=== PATIENT | female | born 1945 | race Caucasian/White ===

== ENCOUNTER 2021-02-05 16:41 | Emergency (ER) | payer OTHER, MEDICARE ==
[~2021-02-05] VITALS: Ht 162.6 cm; Wt 99.8 kg
[2021-02-05] MEDS ORDERED: FLUTICASONE PRO16 GM (19:12)
[2021-02-05] MEDS ORDERED: ALPRAZOLAM1 M3 PO (19:12)
[2021-02-05] MEDS ORDERED: NITROGLYCERIN0.4 M3 SL (19:12)
[2021-02-05] MEDS ORDERED: NEURONTIN300 MG PO (19:12)
[2021-02-05] MEDS ORDERED: ZOLOFT25 MG PO (19:13)
[2021-02-05] MEDS ORDERED: TRAZ50 PO (19:13)
[2021-02-05] MEDS ORDERED: Ventolin/Prove6.7 GM INH (19:13)
[2021-02-05] MEDS ORDERED: OXYCODONE-ACET1 EAC2 (19:13)
[2021-02-05] MEDS ORDERED: OMEP20ER PO (19:14)
== END 2021-02-05 20:58 | disposition home or self-care (01) ==
LOC: ER 16:41
DX: S80.02XA Contusion of left knee, initial encounter (principal); M25.512 Pain in left shoulder; J43.9 Emphysema, unspecified; Z87.891 Personal history of nicotine dependence; Z88.1 Allergy status to other antibiotic agents; W01.0XXA Fall on same level from slipping, tripping and stumbling without subsequent striking against object, initial encounter
CPT/HCPCS: 71101; 73030; 73562-LT; 99283-25

== ENCOUNTER → 2022-04-04 | Outpatient (CLI) | payer MEDICARE, OTHER ==
[~2022-04-04] MED LIST: ALPRAZOLAM1 M3 PO; FLUTICASONE PRO16 GM; NEURONTIN300 MG PO; NITROGLYCERIN0.4 M3 SL; OMEP20ER PO; OXYCODONE-ACET1 EAC2; TRAZ50 PO; Ventolin/Prove6.7 GM INH; ZOLOFT25 MG PO
[2022-04-04 16:04] LABS: Alanine Aminotransfer (ALT/SGP 18 U/L (12-78); Albumin, Blood 3.6 g/dL (3.4-5.0); Albumin/Globulin Ratio 1.3 (0.8-1.8); Alk Phos 51 U/L (50-136); Anion Gap 4 mmol/L (6-16); Aspartate Aminotrans (AST/SGOT 16 U/L (12-37); BASOPHILS ABSOLUTE AUTO 0.02 K/mm3 (0.00-0.23); BASOPHILS PERCENT AUTO 0 % (0-2); Bilirubin, Total 0.5 mg/dL (0.1-1.0); Blood Urea Nitrogen 20 mg/dL (8-24); Bun/Creatinine Ratio 32.6 (12.0-20.0); CHOL/HDL RATIO 2.9; CO2, Blood 33 mmol/L (21-32); Calcium, Blood 8.9 mg/dL (8.5-10.1); Chloride, Blood 103 mmol/L (98-108); Cholesterol 205 mg/dL (50-200); Creatinine, Blood 0.61 mg/dL (0.40-1.00); EOSINOPHILS ABSOLUTE AUTO 0.04 K/mm3 (0.00-0.68); EOSINOPHILS PERCENT AUTO 1 % (0-6); Globulin, Blood 2.8 g/dL (2.2-4.0); Glomerular Filtration Rate 94 (60-); Glucose, Blood 122 mg/dL (70-99); HDL Cholesterol 70 mg/dL (>39); Hemoglobin 13.2 g/dL (11.5-16.0); IMMATURE GRAN ABSOLUTE AUTO 0.01 K/mm3 (0.00-0.10); IMMATURE GRAN PERCENT AUTO 0 % (0-1); LDL/HDL RATIO 1.7; LYMPHOCYTES ABSOLUTE AUTO 0.98 K/mm3 (0.84-5.20); LYMPHOCYTES PERCENT AUTO 19 % (21-46); Low Density Lipoprotein Chol 117 mg/dL (0-110); MONOCYTES ABSOLUTE AUTO 0.28 K/mm3 (0.16-1.47); MONOCYTES PERCENT AUTO 5 % (4-13); Mean Corpuscular HGB 28.8 pg (26.0-34.0); Mean Corpuscular HGB Conc 30.7 g/dL (31.5-36.5); Mean Corpuscular Volume 94 fL (80-100); Mean Platelet Volume 10.6 fL (9.1-12.4); NEUTROPHILS ABSOLUTE AUTO 3.87 K/mm3 (1.96-9.15); NEUTROPHILS PERCENT AUTO 74 % (41-73); Platelet Count 171 K/mm3 (150-400); Potassium, Blood 4.8 mmol/L (3.5-5.5); RDW Coefficient Variation 12.8 % (11.7-14.2); RDW Standard Deviation 43.9 fL (35.1-46.3); Red Blood Cell Count 4.58 M/mm3 (3.80-5.20); Sodium, Blood 140 mmol/L (136-145); Total Protein, Blood 6.4 g/dL (6.4-8.2); Triglycerides 91 mg/dL (30-160); Very Low Density Lipoprot Chol 18 mg/dL (6-32)
== END | disposition home or self-care (01) ==
LOC: LAB SHORT 12:10
PROVIDERS: Nurse Practitioner
DX: E78.5 Hyperlipidemia, unspecified (principal)
CPT/HCPCS: 80053; 80061; 85025

== ENCOUNTER 2024-08-06 18:30 | Emergency (ER) | payer MEDICARE, OTHER ==
[~2024-08-06] VITALS: Ht 162.6 cm; Wt 103.0 kg
[2024-08-06] MEDS ORDERED: FentaNYL Citrate 50 MCG/ML 2 ML Injection IV PRN (23:55)
[2024-08-07 01:32] LABS: BASOPHILS ABSOLUTE AUTO 0.03 K/mm3 (0.00-0.23); BASOPHILS PERCENT AUTO 0 % (0-2); EOSINOPHILS ABSOLUTE AUTO 0.07 K/mm3 (0.00-0.68); EOSINOPHILS PERCENT AUTO 1 % (0-6); Hematocrit 38.6 % (33.0-51.0); Hemoglobin 12.2 g/dL (11.5-16.0); IMMATURE GRAN ABSOLUTE AUTO 0.04 K/mm3 (0.00-0.10); IMMATURE GRAN PERCENT AUTO 1 % (0-1); LYMPHOCYTES ABSOLUTE AUTO 1.55 K/mm3 (0.84-5.20); LYMPHOCYTES PERCENT AUTO 21 % (21-46); MONOCYTES ABSOLUTE AUTO 0.77 K/mm3 (0.16-1.47); MONOCYTES PERCENT AUTO 10 % (4-13); Mean Corpuscular HGB 28.4 pg (26.0-34.0); Mean Corpuscular HGB Conc 31.6 g/dL (31.5-36.5); Mean Corpuscular Volume 90 fL (80-100); Mean Platelet Volume 10.1 fL (9.1-12.4); NEUTROPHILS ABSOLUTE AUTO 4.98 K/mm3 (1.96-9.15); NEUTROPHILS PERCENT AUTO 67 % (41-73); Platelet Count 175 K/mm3 (150-400); RDW Coefficient Variation 14.1 % (11.7-14.2); RDW Standard Deviation 46.8 fL (35.1-46.3); Red Blood Cell Count 4.29 M/mm3 (3.80-5.20); White Blood Cell Count 7.44 K/mm3 (4.00-11.30)
[2024-08-07 02:04] LABS: Source, Urine Straight Cath
[2024-08-07 02:13] LABS: Albumin, Blood 2.6 g/dL (3.4-5.0); Albumin/Globulin Ratio 0.7 (0.8-1.8); Bilirubin, Total 1.5 mg/dL (0.1-1.0); Bun/Creatinine Ratio 21.3 (12.0-20.0); Calcium, Blood 8.4 mg/dL (8.5-10.1); Creatinine, Blood 0.52 mg/dL (0.40-1.00); Globulin, Blood 3.5 g/dL (2.2-4.0); Potassium, Blood 3.3 mmol/L (3.5-5.5); Total Protein, Blood 6.1 g/dL (6.4-8.2)
[2024-08-07 02:22] LABS: Bilirubin, Urine Neg (Neg); Blood, Urine 2+ (Neg); Glucose Qualitative, Urine Neg (Neg); Ketones, Urine Neg (Neg); Leukocyte Esterase, Urine Neg (Neg); Nitrite, Urine Neg (Neg); Protein, Urine Neg (Neg); Urobilinogen, Urine NORM (Normal)
[2024-08-07 02:29] LABS: Appearance, Urine Hazy (Clear); Color, Urine Pale Yellow (P-Yellow)
[2024-08-07 02:30] LABS: Bacteria Few /hpf; Mucus Light (0-Heavy); Red Blood Cells, Urine 0-2 /hpf (0-2); Squamous Epithelial Cells Few /hpf (Few); White Blood Cells, Urine 0-2 /hpf (0-5)
[2024-08-07] MEDS ORDERED: Ketorolac Tromethamine 30mg Vial IV ONE (03:05)
[2024-08-07] MEDS ORDERED: HYDROcodone 10-APAP 325 TAB PO ONE (06:10)
[2024-08-07] MEDS ORDERED: Gabapentin 300 MG Cap PO ONE ×2 (06:10→08:10)
[2024-08-07 11:50] VITALS: BP 98/53
== END 2024-08-07 12:36 | disposition home or self-care (01) ==
LOC: ER 18:30
PROVIDERS: Emergency Medicine
DX: S32.019A Unspecified fracture of first lumbar vertebra, initial encounter for closed fracture (principal); S22.089A Unspecified fracture of T11-T12 vertebra, initial encounter for closed fracture; J44.89 Other specified chronic obstructive pulmonary disease; W18.30XA Fall on same level, unspecified, initial encounter; Z87.891 Personal history of nicotine dependence; Z79.51 Long term (current) use of inhaled steroids; Z79.899 Other long term (current) drug therapy; Z88.1 Allergy status to other antibiotic agents
CPT/HCPCS: 51702; 70450; 71045; 71260; 73502; 73560-LT; 73560-RT; 74177; 80053; 81001; 85025; 93005; 93010; 96374-59; 99285-25; A9270; J1885; Q9967

== ENCOUNTER 2024-12-07 11:17 | Inpatient (IN) | payer MEDICARE, OTHER ==
[~2024-12-07] VITALS: Ht 165.1 cm; Wt 84.0 kg
[~2024-12-07 11:17] MED LIST changes: +TRAZ100 PO; -TRAZ50 PO
[2024-12-07] MEDS ORDERED: levalbuterol HCL 1.25 MG/3 ML VIAL INH PRN (11:45)
[2024-12-07] MEDS ORDERED: MethylPREDNISolone Sod Succ 125 MG Vial IV ONE (11:45)
[2024-12-07 11:49] LABS: BASOPHILS ABSOLUTE AUTO 0.01 K/mm3 (0.00-0.23); BASOPHILS PERCENT AUTO 0 % (0-2); EOSINOPHILS PERCENT AUTO 0 % (0-6); Hematocrit 41.7 % (33.0-51.0); Hemoglobin 12.9 g/dL (11.5-16.0); IMMATURE GRAN ABSOLUTE AUTO 0.02 K/mm3 (0.00-0.10); IMMATURE GRAN PERCENT AUTO 0 % (0-1); LYMPHOCYTES ABSOLUTE AUTO 0.74 K/mm3 (0.84-5.20); LYMPHOCYTES PERCENT AUTO 9 % (21-46); MONOCYTES ABSOLUTE AUTO 0.13 K/mm3 (0.16-1.47); MONOCYTES PERCENT AUTO 2 % (4-13); Mean Corpuscular HGB 27.6 pg (26.0-34.0); Mean Corpuscular HGB Conc 30.9 g/dL (31.5-36.5); Mean Corpuscular Volume 89 fL (80-100); NEUTROPHILS ABSOLUTE AUTO 7.31 K/mm3 (1.96-9.15); NEUTROPHILS PERCENT AUTO 89 % (41-73); Platelet Count 256 K/mm3 (150-400); RDW Coefficient Variation 15.5 % (11.7-14.2); RDW Standard Deviation 50.8 fL (35.1-46.3); Red Blood Cell Count 4.67 M/mm3 (3.80-5.20); White Blood Cell Count 8.21 K/mm3 (4.00-11.30)
[2024-12-07 12:06] LABS: Albumin, Blood 3.2 g/dL (3.4-5.0); Bilirubin, Total 0.9 mg/dL (0.1-1.0); Bun/Creatinine Ratio 16.1 (12.0-20.0); Calcium, Blood 8.9 mg/dL (8.5-10.1); Creatinine, Blood 0.56 mg/dL (0.40-1.00); Globulin, Blood 3.3 g/dL (2.2-4.0); Potassium, Blood 3.6 mmol/L (3.5-5.5); Total Protein, Blood 6.5 g/dL (6.4-8.2)
[2024-12-07] MEDS ORDERED: Ipratropium Bromide INH 0.02% 0.5 mg/2.5ML Vial INH ONE (12:10)
[2024-12-07 13:05] LABS: Influenza A, PCR NEGATIVE (NEGATIVE); Influenza B, PCR NEGATIVE (NEGATIVE); Resp Syncytial Virus, PCR NEGATIVE (NEGATIVE); SARS-Cov-2 (COVID-19) PCR, MMC NEGATIVE (NEGATIVE)
[2024-12-07] MEDS ORDERED: Bisacodyl 10 MG Supp PR PRN (15:10)
[2024-12-07] MEDS ORDERED: FLU VACC TS2024-25(6MOS UP)/PF 45 MCG/0.5 ML SYRINGE IM SCH (15:10)
[2024-12-07] MEDS ORDERED: Albuterol 2.5 MG/3 ML VIAL INH PRN (15:15)
[2024-12-07] MEDS ORDERED: Magnesium Hydroxide Conc 10 ML UDC PO PRN (15:15)
[2024-12-07] MEDS ORDERED: Acetaminophen 325 MG TABLET PO PRN (15:15)
[2024-12-07] MEDS ORDERED: [UNRECOGNIZED DRUG - OTHER] IM ONE (15:15)
[2024-12-07 15:56] LABS: Base Excess Venous 0.6 mmol/L; Bicarbonate Venous 25.3 mmol/L (24.0-30.0); PCO2 Venous 35.9 mmHg (38-42); pH Blood Venous 7.45 (7.34-7.37)
[2024-12-07] MEDS ORDERED: Ipratropium/Albuterol SulF 2.5-0.5MG/3 ML Amp INH SCH (16:00)
[2024-12-07] MEDS ORDERED: Apixaban 5 MG Tab PO SCH (16:00)
[2024-12-07] MEDS ORDERED: BUSPIRONE HCL10 M6 PO (16:35)
[2024-12-07] MEDS ORDERED: METH5 PO (16:36)
[2024-12-07] MEDS ORDERED: TRAZ100 (16:38)
[2024-12-07] MEDS ORDERED: OXYBUTYNIN CHL2.5 MG PO (16:38)
[2024-12-07] MEDS ORDERED: TORSE20 PO (16:38)
[2024-12-07] MEDS ORDERED: NEURONTIN300 MG PO (16:38)
[2024-12-07] MEDS ORDERED: TRELEGY ELLIPT1 EAC1 INH (16:39)
[2024-12-07] MEDS ORDERED: Gabapentin 300 MG Cap PO SCH (17:00)
[2024-12-07] MEDS ORDERED: OMEP20ER PO (17:00)
[2024-12-07] MEDS ORDERED: Zolpidem Tartrate 5 MG Tab PO PRN (17:05)
[2024-12-07 17:10] VITALS: BP 160/100
[2024-12-07] MEDS ORDERED: Ipratropium Bromide INH 0.02% 0.5 mg/2.5ML Vial INH SCH (17:10)
[2024-12-07] MEDS ORDERED: Mometasone/Formoterol MDI 200/5 mcg 13 GM INH SCH (17:10)
[2024-12-07] MEDS ORDERED: Torsemide 20 MG TAB PO SCH (18:00)
[2024-12-07] MEDS ORDERED: MethylPREDNISolone Sod Succ 125 MG Vial IV SCH (18:00)
[2024-12-07] MEDS ORDERED: Methadone HCL 10 MG TAB PO SCH (21:00)
[2024-12-07] MEDS ORDERED: BusPIRone HCl 10 MG Tab PO SCH (21:00)
[2024-12-07] MEDS ORDERED: TraZODone HCl 100 MG Tab PO SCH (21:00)
[2024-12-07 21:12] VITALS: BP 141/95
[2024-12-07 23:57] VITALS: BP 146/90
[2024-12-08 04:12] LABS: BASOPHILS PERCENT AUTO 0 % (0-2); EOSINOPHILS PERCENT AUTO 0 % (0-6); Hematocrit 41.2 % (33.0-51.0); Hemoglobin 12.9 g/dL (11.5-16.0); IMMATURE GRAN ABSOLUTE AUTO 0.02 K/mm3 (0.00-0.10); IMMATURE GRAN PERCENT AUTO 0 % (0-1); LYMPHOCYTES ABSOLUTE AUTO 0.77 K/mm3 (0.84-5.20); LYMPHOCYTES PERCENT AUTO 15 % (21-46); MONOCYTES ABSOLUTE AUTO 0.13 K/mm3 (0.16-1.47); MONOCYTES PERCENT AUTO 3 % (4-13); Mean Corpuscular HGB 27.6 pg (26.0-34.0); Mean Corpuscular HGB Conc 31.3 g/dL (31.5-36.5); Mean Corpuscular Volume 88 fL (80-100); Mean Platelet Volume 10.3 fL (9.1-12.4); NEUTROPHILS ABSOLUTE AUTO 4.24 K/mm3 (1.96-9.15); NEUTROPHILS PERCENT AUTO 82 % (41-73); Platelet Count 237 K/mm3 (150-400); RDW Coefficient Variation 15.6 % (11.7-14.2); RDW Standard Deviation 50.1 fL (35.1-46.3); Red Blood Cell Count 4.67 M/mm3 (3.80-5.20); White Blood Cell Count 5.16 K/mm3 (4.00-11.30)
[2024-12-08 04:14] VITALS: BP 148/81
--- NOTE | 2024-12-08 04:30 | NUR ---
SHIFT SUMMARY. SHIFT HAS BEEN UNREMARKABLE. PT AOX4 AT SHIFT ONSET ALTHOUGH MENTATION HAS SOMEWHAT FLUCTUATED THROUGHOUT SHIFT. REMAINS ABLE TO ANSWER MOST ORIENTATION QUESTIONS APPROPRIATELY BUT AT TIMES MAKES NONSENSICAL COMMENTS AND ANSWERS QUESTIONS THAT WERE NOT ASKED. OTHERWISE SHIFT HAS BEEN UNREMARKABLE. PT ABLE TO REST COMFORTABLY. PUREWICK IN PLACE THROUGHOUT SHIFT D/T INCONTINENCE. VITALS STABLE. HAS MAINTAINED ADEQUATE SATURATION ON 3 L O2 VIA NC THROUGHOUT SHIFT. HAS DENIED PAIN THROUGHOUT SHIFT OUTSIDE OF THAT ASSOCIATED WITH REPOSITIONING AND SOME OTHER ASPECTS OF CARE. PT REPORTS HX OF FIBROMYALGIA THAT CAUSES THINGS LIKE BLOOD PRESSURE TO BE PAINFUL BUT OTHERWISE PT IS PAIN FREE WHEN LEFT ALONE. BED LOCKED IN LOWEST POSITION. CALL LIGHT LEFT WITHIN REACH. CONTINUING TO MONITOR.
[2024-12-08 04:41] LABS: Bun/Creatinine Ratio 15.7 (12.0-20.0); Calcium, Blood 8.8 mg/dL (8.5-10.1); Creatinine, Blood 0.57 mg/dL (0.40-1.00); Potassium, Blood 3.1 mmol/L (3.5-5.5)
[2024-12-08] MEDS ORDERED: Omeprazole 20 MG CapCR PO SCH (06:00)
[2024-12-08 08:00] VITALS: BP 130/113
[2024-12-08] MEDS ORDERED: Potassium Chloride 20 MEQ TabCR PO ONE (08:00)
[2024-12-08] MEDS ORDERED: Heparin Sodium 5000 Units/ML 1ML MDV SC SCH (09:00)
[2024-12-08] MEDS ORDERED: HyDROXyzine HCl 25 MG Tab PO PRN (09:50)
[2024-12-08 12:00] VITALS: BP 124/108
--- NOTE | 2024-12-08 14:36 | NUR ---
REPORT RECIEVED AT 0700. BEDSIDE REPORT DONE, ALL QUESTIONS ANSWERED. DURING MED PASS, RN CALLED TO BEDSIDE FOR PATIENT HAVING A PANIC ATTACK. RR HIGH 30'S, HR 140'S, PT FLUSHED IN THE FACE. DEESCULATION COMMUNICATIONS NOT EFFECTIVE. PATIENT A/O TO SELF ONLY. DR. GAINES AND RANDY AT BEDSIDE. EPISODE LASTED AROUND 30 MINS. MORNING MEDS GIVEN INCLUDING METHADONE 20MG. PATIENT REPORTS FEELING BETTER FOLLOWING MORNING MEDS. ATARAX PRN ORDERED AND GIVEN. THROUGHOUT SHIFT DISTRACTIONS SUCH BOOKS, PEN/PAPER, TV, COMFORT OFFERED. PATIENT REMAINS A/O X1-2. ANXIETY, REMAINS A PROBLEM BUT PATIENT NOT A HARM TO HERSELF AT THIS TIME.
[2024-12-08 16:00] VITALS: BP 146/112
[2024-12-08 20:04] VITALS: BP 145/87
[2024-12-08 21:53] VITALS: BP 148/83
--- NOTE | 2024-12-08 22:08 | NUR ---
RECEIVED PT FROM PCU. PT ORIENTED TO SELF AND "[facility]". PT SPEAKS WITH FLIGHTS OF IDEAS. PT ANXIOUS AND JUMPY/ STRTLES EASILY WITH CARE. PT REFUSING TO LAY ON SIDE, BUT DID AGREE TO PILLOWS UNDER BOTH SIDES TO FLOAT HER BUTTOCKS OFF BED. COCCYX RED BUT BLANCHABLE. 3L NC IN PLACE, WHICH IS PT'S BASELINE. PUREWICK FOR INCONTINENCE. SILVER CLOTH IN PANNUS FOLD AND LEFT AXILA. PT ORIENTED TO UNIT AND DENIES QUESTIONS AT THIS TIME.
--- NOTE | 2024-12-09 00:59 | NUR ---
TRANSFER PT IS A&O TO SELF AND PLACE. VSS ON 3L NC. DENIES PAIN. TOLERATING A REGULAR DIET. TAKES PILLS MULTIPLE AT A TIME WITH FLUID. WICKING SYSTEM IN PLACE, DRAINING ADEQUATE AMOUNTS OF YELLOW URINE. NOOB. CALLED LIBRADO Sunshine RN TO GIVE REPORT. TRANSFERED PT IN HER BED WITH ALL HER BELONGINGS WITH HER TO ROOM 330 AT 2125.
[2024-12-09 03:24] VITALS: BP 175/90
--- NOTE | 2024-12-09 05:16 | NUR ---
SHIFT SUMMARY PT TRANSFERED FROM PCU- SEE PRIOR NOTE. PT SLEPT INTERMITTENTLY DURING THE NIGHT. PUREWICK MAINTAINED FOR HX INCONT. PT UP TO BSC X 1 WITH ASSIST. PT IMPULSIVE AT TIMES. MEDICATED FOR ANXIETY WITH ATARAX PER EMAR. PT FIDGETY, FORGETFUL AT TIMES, AND SPEAKS WITH FLIGHT OF IDEAS. BED IN LOWEST POSITION, CALL LIGHT WITHIN REACH, SIDERAILS UP X2, BED ALARM ON.
[2024-12-09 06:31] LABS: BASOPHILS PERCENT AUTO 0 % (0-2); EOSINOPHILS PERCENT AUTO 0 % (0-6); Hemoglobin 12.3 g/dL (11.5-16.0); IMMATURE GRAN ABSOLUTE AUTO 0.05 K/mm3 (0.00-0.10); IMMATURE GRAN PERCENT AUTO 1 % (0-1); LYMPHOCYTES ABSOLUTE AUTO 0.91 K/mm3 (0.84-5.20); LYMPHOCYTES PERCENT AUTO 10 % (21-46); MONOCYTES ABSOLUTE AUTO 0.28 K/mm3 (0.16-1.47); MONOCYTES PERCENT AUTO 3 % (4-13); Mean Corpuscular HGB 27.5 pg (26.0-34.0); Mean Corpuscular HGB Conc 30.8 g/dL (31.5-36.5); Mean Corpuscular Volume 90 fL (80-100); Mean Platelet Volume 10.1 fL (9.1-12.4); NEUTROPHILS ABSOLUTE AUTO 7.72 K/mm3 (1.96-9.15); NEUTROPHILS PERCENT AUTO 86 % (41-73); Platelet Count 205 K/mm3 (150-400); RDW Coefficient Variation 15.6 % (11.7-14.2); RDW Standard Deviation 51.2 fL (35.1-46.3); Red Blood Cell Count 4.47 M/mm3 (3.80-5.20); White Blood Cell Count 8.96 K/mm3 (4.00-11.30)
[2024-12-09 07:07] LABS: Calcium, Blood 8.8 mg/dL (8.5-10.1); Creatinine, Blood 0.67 mg/dL (0.40-1.00); Potassium, Blood 3.5 mmol/L (3.5-5.5)
[2024-12-09 08:09] VITALS: BP 144/71
--- NOTE | 2024-12-09 16:19 | NUR ---
Met with pt today, she was oriented to self only, and speaking in disorganized manor. Unable to stay on track with conversation. For instance, she answered a question about her son but ended up confusing her dog and her son by the end of the statement. Very concerned at the prospect of her returning home, especially into the supposed care of a teenage grandson, per CM. Discussing with PIPING BLOCKER more tomorrow.
--- NOTE | 2024-12-09 16:30 | NUR ---
PT PULLED BOTH IV'S, NOW CHANTING PHRASES. WAS ABLE TO GET ATARAX DOWN, WITH PUDDING. THEN PT ACCEPTED A SIP OF WATER, AND THREW FULL GLASS AT ME. MISSED AND HIT WALL. PT CONTINUES TO CHANT. NONSENSICAL. BED IN LOW POSITION, CALL LITE IN REACH, BED ALARM ON FOR SAFETY
[2024-12-09] MEDS ORDERED: OLANZapine ODT 5 MG Tab MM PRN (16:45)
--- NOTE | 2024-12-09 16:57 | NUR ---
DISCUSSED WITH DR PADILLA IN [place]. ORDERS FOR ZYPREXA
[2024-12-09 17:40] VITALS: BP 166/109
--- NOTE | 2024-12-09 18:31 | NUR ---
PT LABILE TODAY. ATTEMPTED TO HIT ME TWICE TODAY. HAS BEEN CHANTING STATEMENTS TODAY, MOST OF TIME NONSENSICAL. DISCUSSED WITH DR. GRANT STARTED TODAY. ABLE TO TAKE PILLS EVEN WHILE HIGH ANXIETY, WITH PATIENCE AND CRUSHED IN VANILLA PUDDING. B/P SOME HIGH THIS AFTERNOON, BUT WAS STILL PRETTY ANXIOUS WHEN TOOK. BEFORE GIVEN THE ZYPREXA. NO FURTHER CONCERNS NOTED. BED IN LOW POSITION, CALL LITE IN REACH, BED ALARM ON FOR SAFETY
[2024-12-09 21:14] VITALS: BP 146/88
--- NOTE | 2024-12-10 00:22 | NUR ---
UNABLE TO ADMINISTER SCHEDULED IV SOLUMEDROL D/T PT HAS NO IV ACCESS. WILL NOTIFY STEEPLE JACK, AND PASS INFO TO DAYSHIFT RN.
[2024-12-10 03:04] VITALS: BP 131/67
--- NOTE | 2024-12-10 03:53 | NUR ---
SHIFT SUMMARY NO ACUTE EVENTS DURING THIS SHIFT. PT LAYING IN BED WITH PUREWICK IN PLACE. PT A/O X2. COOPERATIVE WITH CARE. HS SCHEDULED MEDICATIONS CRUSHED AND ADMINISTERED WITH VANILLA PUDDING PER PT REQUEST. NO IV ACCESS- MIDNIGHT SOLUMEDROL HELD. O2 3L VIA NASAL CANNULA, PT DENIES SOB. O2 SAT'S>97%. BED AT THE LOWEST POSITION, CALL LIGHT WITHIN REACH. PT IS ABLE TO MAKE HER NEEDS KNOWN.
[2024-12-10 06:09] LABS: Hematocrit 40.7 % (33.0-51.0); Hemoglobin 12.7 g/dL (11.5-16.0); Mean Corpuscular HGB 27.8 pg (26.0-34.0); Mean Corpuscular HGB Conc 31.2 g/dL (31.5-36.5); Mean Corpuscular Volume 89 fL (80-100); Mean Platelet Volume 9.6 fL (9.1-12.4); Platelet Count 170 K/mm3 (150-400); RDW Coefficient Variation 15.5 % (11.7-14.2); RDW Standard Deviation 50.4 fL (35.1-46.3); Red Blood Cell Count 4.57 M/mm3 (3.80-5.20); White Blood Cell Count 6.97 K/mm3 (4.00-11.30)
[2024-12-10 06:31] LABS: Bun/Creatinine Ratio 25.9 (12.0-20.0); Calcium, Blood 8.6 mg/dL (8.5-10.1); Creatinine, Blood 0.66 mg/dL (0.40-1.00); Potassium, Blood 3.1 mmol/L (3.5-5.5)
[2024-12-10] MEDS ORDERED: Potassium Chloride 20 MEQ TabCR PO ONE ×2 (07:10→08:00)
[2024-12-10 07:19] VITALS: BP 129/68
[2024-12-10] MEDS ORDERED: PredniSONE 20 MG Tab PO SCH (09:00)
--- NOTE | 2024-12-10 13:24 | NUR ---
ASSUMED CARE OF PT. PT LAYING IN BED QUIETLY WHEN I APPROACHED PT AND REQUESTED PREFORMING ASSSSMENT PT STATED NO AND THAT SHE DIDNT WANT TO BE BOTHERED NOR DID SHE WANT ANY MEDICATIONS. PT THEN STATED SHE HATES MY VOICE AND DOESNT WANT ME COMING BACK. I LET HER KNOW I WOULD RETURN TO CHECK UP ON HER. 08 PT REFUSED BREAKFAST, PT LAYING AND REFUSING TO OPEN EYES, AGAIN SHE STATED SHE DIDNT WANT TO TALK TO ME AND I WOULD NOT TURN NOR CHECK HER. RESIDENT STAFF WAS INFORMED AND WAS ALSO USHERED OUT OF ROOM. CARE MANAGEMENT WAS ALSO INFORMED AND ALSO FOUND PT TO BE DIFFICULT TO WORK WITH.
--- NOTE | 2024-12-10 13:32 | NUR ---
ASSESSED PT Q 1 HOUR AND ASKED IF SHE NEEDED ANYTHING, PT GROWING MORE AND MORE FRUSTRATED WITH ME SO I WILL GIVE MORE SPACE BETWEEN CHCKING IN. CLIENT SERVICE ASSOCIATE HAVING MORE LUCK COMMUNICATING WITH PT, BUT STILL REFUSING CARE.
--- NOTE | 2024-12-10 17:33 | NUR ---
1500 LET PT KNOW THAT WE WOULD NEED TO CHANGE HER, SHE RESPONDEDBY SAYING NO NO THANK YOU. THEN THE PIE DOUGH ROLLER AND I ENTERED THE ROOM AND LET PT KNOW WE WERE GOING TO CHANGE HER AND HER POSITION IN BED, PT DID NOT SAY ANYTHING AND KEPT EYES CLOSED. THE PIE DOUGH ROLLER AND I CHANGED PT SUCCESSFULLY. PT SKIN INTACT PURWIC TO LCS.
[2024-12-10 17:50] VITALS: BP 158/96
--- NOTE | 2024-12-10 18:09 | NUR ---
1700 CHECKED ON PT BUT PT WAS VERY LETHARGIC AND DIFFICULT TO AROUSE, WOULD NOT RESPOND TO VERBLE RESPONSE BUT DID RESPOND TO DEEP STERNAL RUB. EYE RESPONSIVE TO LIGHT AND VITALS WERE WNL. DR MENON WAS NOTIFIED.
--- NOTE | 2024-12-10 20:32 | NUR ---
@HS PT REFUSED ALL HER SCHEDULED PO MEDICATIONS. PT ALSO REFUSED SHIFT ASSESSMENT. PT REFUSES TO WEAR NASAL CANNULA, O2 SUPPORT. RRN CHARGE NOTIFIED.
[2024-12-10 20:49] VITALS: BP 154/81
[2024-12-11] VITALS (8 sets, daily range): BP systolic 72–160; BP diastolic 55–106
--- NOTE | 2024-12-11 03:53 | NUR ---
SHIFT SUMMARY @HS PT REFUSED SCHEDULED MEDICATIONS, SHIFT ASSESSMENT AND O2 VIA NASAL CANNULA 3.5L. PT REFUSED TO SPEAK TO THIS LACE PAPER MACHINE OPERATOR, KEEPING HER EYES CLOSED. AROUND MIDNIGHT, NOTED THAT PT PLACED NASAL CANNULA BACK ON HER NOSTRILS. PT SPEAKING WITH THIS LACE PAPER MACHINE OPERATOR, DENIED NEEDS. MFTS ABLE TO GET VS'S AND ABLE TO REPOSITION THE PT IN BED. PUREWICK IN PLACE, DRAINING CLOUDY YELLOW URINE. ATTENDS IN PLACE. NO ACUTE EVENTS DURING THIS SHIFT. BED AT THE LOWEST POSITION, CALL LIGHT W/I REACH. PT IS ABLE TO MAKE HER NEEDS KNOWN, AND NOT COOPERATIVE WITH CARE.
[2024-12-11] MEDS ORDERED: Potassium Chloride 10 Meq Tablet SA PO SCH (10:30)
[2024-12-11 15:56] LABS: Albumin, Blood 3.2 g/dL (3.4-5.0); Albumin/Globulin Ratio 0.9 (0.8-1.8); Bun/Creatinine Ratio 34.7 (12.0-20.0); Calcium, Blood 10.1 mg/dL (8.5-10.1); Creatinine, Blood 0.69 mg/dL (0.40-1.00); Globulin, Blood 3.7 g/dL (2.2-4.0); Total Protein, Blood 6.9 g/dL (6.4-8.2)
[2024-12-11] MEDS ORDERED: Metoprolol Succinate 25 MG TABCR PO SCH (16:00)
[2024-12-11] MEDS ORDERED: Ipratropium/Albuterol SulF 2.5-0.5MG/3 ML Amp INH SCH (17:20)
--- NOTE | 2024-12-11 18:27 | NUR ---
REPORT RECEIVED AND ASSUMED CARE OF PT A/O X 2 REORIENTED AND VERY FORGETFUL BUT IS MUCH MORE WILL TO BE COOPERATIVE WITH CARE TODAY. PT DID VERY WELL DURING THE MORNING AND WAS EVEN ABLE TO TRANSFER TO A BSC HAVING A LARGE BM. PT WAS ABLE TO CALL APPROPRIATLY AND HAS BEEN USING CALL LIGHT ALL MORNING. SHORTLY BEFORE LUNCH PT BEGAN WORKING HARDER AND HARDER TO BREATH, THOUGH PT STATED SHE FELT GREAT, HER HEART RATE AND BREATHING INCREASED. PT WAS MEDICATED FOR AGITATION AND WAS THANKFUL. WAS NOTIFIED AND LATER ARRIVED TO DO AN ECG. PT CONT TO LAY IN BED CONTENT. 1700 MDs, INTO SEE PT NEW ORDERS IMPLEMENTED. RT WAS NOTIFIED
--- NOTE | 2024-12-11 23:17 | NUR ---
12/11/242009 This engineering technical writer is charge nurse, asked by pt nurse to assess pt. Pt is obtunded where she had been more alert just a few minutes before. Vital signs taken,BP 83/63 pt grunts but minimal response to assessment. 2015 Respiratory therapist in room, breathing treatment started, new smaller cuff to left arm, BP 93/69 HR 112 R 24 o2 sat 98% on 4 liters. Pt still lethargic but she did have her night meds 30 min. earlier that are sedating. BP meds were held per nurse. 2039 pt BP low 78/57 but pt then aroused with verbal stimuli and touch, pt swearing, BP 90/64, p-97, r-20, O2 sat 95% on 4 liters. Pt skin warm and dry. No respiratory distress noted. Will continue to monitor.
[2024-12-12] MEDS ORDERED: MethylPREDNISolone Sod Succ 125 MG Vial IV SCH
[2024-12-12 02:45] VITALS: BP 130/75
--- NOTE | 2024-12-12 03:39 | NUR ---
SHIFT SUMMARY @BEGINNING OF THIS SHIFT, PT A/O X2, HAVING SMALL CONVERSTATION WITH THIS DIRECTOR OF DEVELOPMENT. RESIDENT DR. DASILVA BY THE BEDSIDE. SCHEDULED MEDICATIONS ADMINISTERED ORDERED, PT ABLE TO TAKE WHOLE PILLS/CAPSULES WITH FLUIDS. @2014'OCTAVIO PT SUDDENLY APPEARING OBTUNDED, RESPONDING TO TOUCH/WAKE UP EFFORT. PENSIONS RETIREMENT PLAN SPECIALIST BY THE BEDSIDE. SOFT BPS, WHICH STARTED THEN IMPROVING. O2 @3.5L VIA NASAL CANNULA. PT RECOVERED WITH VS, NO OTHER EVENTS DURING THE NIGHT. BED AT THE LOWEST POSITION, CALL LIGHT W/I PEPE, REPOSITIONED Q2HRS T/O THIS SHIFT.
[2024-12-12 07:32] VITALS: BP 142/81
[2024-12-12 08:28] VITALS: BP 144/90
[2024-12-12 09:16] LABS: BASOPHILS PERCENT AUTO 0 % (0-2); EOSINOPHILS PERCENT AUTO 0 % (0-6); Hematocrit 45.1 % (33.0-51.0); Hemoglobin 13.8 g/dL (11.5-16.0); IMMATURE GRAN ABSOLUTE AUTO 0.02 K/mm3 (0.00-0.10); IMMATURE GRAN PERCENT AUTO 0 % (0-1); LYMPHOCYTES ABSOLUTE AUTO 1.58 K/mm3 (0.84-5.20); LYMPHOCYTES PERCENT AUTO 24 % (21-46); MONOCYTES PERCENT AUTO 3 % (4-13); Mean Corpuscular HGB 27.5 pg (26.0-34.0); Mean Corpuscular HGB Conc 30.6 g/dL (31.5-36.5); Mean Corpuscular Volume 90 fL (80-100); NEUTROPHILS ABSOLUTE AUTO 4.75 K/mm3 (1.96-9.15); NEUTROPHILS PERCENT AUTO 73 % (41-73); Platelet Count 194 K/mm3 (150-400); RDW Coefficient Variation 15.2 % (11.7-14.2); RDW Standard Deviation 50.4 fL (35.1-46.3); Red Blood Cell Count 5.02 M/mm3 (3.80-5.20); White Blood Cell Count 6.55 K/mm3 (4.00-11.30)
[2024-12-12 09:31] LABS: Albumin, Blood 3.1 g/dL (3.4-5.0); Albumin/Globulin Ratio 0.9 (0.8-1.8); Bilirubin, Total 0.9 mg/dL (0.1-1.0); Bun/Creatinine Ratio 34.9 (12.0-20.0); Calcium, Blood 9.4 mg/dL (8.5-10.1); Creatinine, Blood 0.77 mg/dL (0.40-1.00); Globulin, Blood 3.6 g/dL (2.2-4.0); Potassium, Blood 3.8 mmol/L (3.5-5.5); Total Protein, Blood 6.7 g/dL (6.4-8.2)
--- NOTE | 2024-12-12 10:22 | NUR ---
PATIENT WAS OBTUNDED THIS MORNING AT START OF MY SHIFT, UNRESPONSIVE TO STERNAL RUB. HOWEVER VITALS WERE WITHIN NORMAL LIMITS. NOTIFIED DR. BARRAZA WHO STATED THIS OCCURRED YESTERDAY MORNING WELL. PATIENT BECAME MORE ALERT ON HER OWN AROUND 0930. STILL CONFUSED HOWEVER. ORIENTED ONLY TO SELF.
[2024-12-12] MEDS ORDERED: CefTRIAXone Sodium 1,000 MG in NS 100 ML IV SCH (12:00)
[2024-12-12] MEDS ORDERED: PredniSONE 20 MG Tab PO SCH (13:00)
[2024-12-12] MEDS ORDERED: Azithromycin 250 MG Tab PO SCH (15:00)
[2024-12-12] MEDS ORDERED: Cefpodoxime Proxetil 200 MG Tab PO SCH (15:00)
[2024-12-12 15:31] VITALS: BP 134/78
--- NOTE | 2024-12-12 15:41 | NUR ---
Pt is a 79 year old woman with history of severe COPD, fibromyalgia and anxiety. She arrived to the hospital with severe resp distress, with a baseline of severe SOB. Since arriving and the hospital, her health has continued to decline. According to staff, she is eating only bites of food, and sleeping over 50% of the time. She remains pleasantly confused. Spoke to pt's son Kurt who is agreeable with comfort care for the patient. Dr. Woodruff agrees, as pt was previously on hospice, was discharged for cause due to unsafe environment. She remains appropriate for comfort care.
[2024-12-12] MEDS ORDERED: Morphine Sulfate 20 MG/1ML 1 ML Oral Syringe SL PRN (16:10)
--- NOTE | 2024-12-13 02:37 | NUR ---
SHIFT SUMMARY PT IS CONFUSED, DOES NOT KNOWN THE LOCATION WHERE SHE IS AT. PT IS ON COMFORT CARE MEASURES. PT ATTEMPTING TO CALL FAMILY WITH HER CELL PHONE DURING THE NIGHT HRS. PO MEDICATIONS ADMINISTERED AT HS W/O ANY COMPLICATIONS, PT SWALLOWING WELL. PT REMEMBERS THIS DIRECTOR ENVIRONMENTAL'S NAME. A/O X1-2. PUREWICK IN PLACE DRAINING CLOUDY YELLOW URINE. MEDICATED PER EMAR FOR PAIN AND ANXIETY. NO ACUTE EVENTS DURING THIS SHIFT. BED AT THE LOWEST POSITION, CALL LIGHT W/I REACH. Q2HR REPOSITIONING T/O THIS SHIFT. REORIENTED T/O THIS SHIFT, PT CONFUSED.
--- NOTE | 2024-12-13 16:39 | NUR ---
PERMISSION TO CALL PATIENT GAVE PERMISSION (12/13/24 @ 9254) TO CONTACT MENDEZ GILMORE @ [phone] WITH ANY CONCERNS OR CHANGES, PATIENT ALSO GAVE PERMISSION FOR INFORMATION TO BE PROVIDED TO MENDEZ GILMORE IF SHE IS TO CALL.
--- NOTE | 2024-12-13 17:10 | NUR ---
SHIFT SUMMARY PT REMAINS ON COMFORT CARE, NO ACUTE CHANGES T/O SHIFT. PT REMAINS A/O TO SELF, SOME CONFUSION AND NONSENSICAL CONVERSATION, APPETITE REMAINS GOOD. PT DENIES PAIN, RESPIRATIONS EVEN AND UNLABORED. PT ON 2 L/MIN VIA NC FOR COMFORT. REPOSITIONED Q2H. PT CURRENTLY SLEEPING IN HOSPITAL BED WITH BED IN LOWEST POSITION AND CALL LIGHT WITHIN REACH. BED ALARM ON DUE TO PT FORGETTING LIMITATIONS AND NOT USING CALL LIGHT APPROPRIATELY.
--- NOTE | 2024-12-14 04:25 | NUR ---
SHIFT SUMMARY ADMITTED FOR COPD EXACERBATION/RUL PNEUMONIA. DNR CODE. COMFORT CARE PATIENT. PLAN IS FOR PLACEMENT. PALLIATIVE CARE IS CONSULTED. PUREWICK IN PLACE FOR INCONTINENCE. 4 LPM O2 VIA NC. STANDBY ASSIST TO BSC. SHE IS ON ELIQUIS. REGULAR/FINGER FOOD DIET.
--- NOTE | 2024-12-14 16:23 | NUR ---
SHIFT SUMMARY REMAINS ON COMFORT CARE, PT APPEARED COMFORTABLE T/O SHIFT WITH NO EVIDENCE OF DISCOMFORT OR DISTRESS. PT MORE WITHDRAWN TODAY, PRIMARILY SLEPT T/O SHIFT. WAKES TO VERBAL STIMULI. PT REFUSED MEDICATIONS OR MEDICATIONS HELD DUE TO ASPIRATION RISK R/T LETHARGY. BITES ONLY OF BREAKFAST TODAY. CONTINUES TO WEAR 4 L/MIN VIA NC FOR COMFORT. PUREWICK REMOVED DUE TO LEAKING OFTEN, ATTENDS CHECK/CHANGE AND REPOSITIONING Q2H. PT CURRENTLY SLEEPING IN BED WITH BED IN LOWEST POSITION AND CALL LIGHT WITHIN REACH.
[2024-12-14] MEDS ORDERED: Apixaban 5 MG Tab PO SCH (21:00)
--- NOTE | 2024-12-14 21:53 | NUR ---
NURSE NOTE PT IS DROWSY. THIS RN ABLE TO AWAKEN PT AND ASK ORIENTATION QUESTIONS, TO WHICH THE PT WAS ABLE TO ANSWER. PT AOX2. HOWEVER, PT DID NOT REMAIN AWAKE FOR LONG, AND WENT BACK TO SLEEP.
--- NOTE | 2024-12-15 01:36 | NUR ---
NURSE NOTE DURING ROUNDING, PT WAS ABLE TO WAKE UP MORE EASILY, NOW MORE RESPONSIVE.
--- NOTE | 2024-12-15 02:45 | NUR ---
NURSE NOTE DURING ROUNDING, PT IS NOW MORE AWAKE. SHE IS AOX2. SHE IS CALM AND COOPERATIVE. ALSO REPOSITIONED PT.
--- NOTE | 2024-12-15 05:53 | NUR ---
SHIFT SUMMARY PT WAS DROWSY FOR MOST OF THE NIGHT. SHE WAS AROUSABLE, BUT NOT ABLE TO STAY AWAKE FOR A FEW SECONDS. PT HAS BEEN AOX2, TO SELF AND PLACE. AT AROUND 0130, SHE BECAME MORE AWAKE AND ALERT. NOW SHE IS FULLY ALERT, STILL ORIENTED TO ONLY SELF AND PLACE. SHE IS HAVING FULL CONVERSATIONS AND IS VERY COOPERATIVE. PT REPORTED AT 0530 SHE WAS ANXIOUS AND FEARFUL, STATING SHE WANTED TO GO HOME. OTHERWISE, PT HAD UNEVENTFUL NIGHT.
[2024-12-15] MEDS ORDERED: Apixaban 5 MG Tab PO SCH (09:00)
[2024-12-15] MEDS ORDERED: Ipratropium/Albuterol SulF 2.5-0.5MG/3 ML Amp INH PRN (09:10)
[2024-12-15] MEDS ORDERED: Azithromycin 250 MG Tab PO ONE (10:25)
--- NOTE | 2024-12-15 17:09 | NUR ---
SHIFT SUMMARY PT REMAINS ON COMFORT CARE. NO ACUTE CHANGES. PT AWAKE MAJORITY OF SHIFT, ABLE TO MAKE NEEDS KNOWN. PT DENIES PAIN. REPORTS ANXIETY AND FEELING SCARED. MEDICATION GIVEN PER EMAR FOR ANXIETY. PT EASILY CONSOLED. BITES OF FOOD T/O DAY, FAIR FLUID INTAKE. PT CURRENTLY RESTING IN HOSPITAL BED WITH BED IN LOWEST POSITION AND CALL LIGHT WITHIN REACH.
--- NOTE | 2024-12-16 02:56 | NUR ---
SHIFT SUMMARY PT IS PLEASANT, A/O X2-3, REORIENTED TO PLACE. PT CONTINUES ON COMFORT CARE MEASURES. @HS PT REPORTS BEING "VERY SCARED". REORIENTED AND MEDICATED PER EMAR. PT STAYING BED T/O THIS SHIFT, REPOSITIONED DURING NOC HRS. PUREWICK IN PLACE. O2 VIA NASAL CANNULA FOR COMFORT @3-4L. NO ACUTE CHANGES OR EVENTS DURING THIS SHIFT. BED AT THE LOWEST POSITION, CALL LIGHT W/I REACH. FREQUENT CHECKS BY THE BEDSIDE.
--- NOTE | 2024-12-16 19:35 | NUR ---
SHIFT SUMMARY PT IS A/OX2-3, CONFUSION TO PLACE. COMFORT CARE. NO ACUTE CHANGES THROUGHOUT THIS SHIFT. PT SLEEPING FOR MUCH OF THE DAY. ON 3.5-4L NC. PT CALLS APPROPRIATELY USING THE CALL LIGHT. MEDS WHOLE WITH WATER.
--- NOTE | 2024-12-17 05:13 | NUR ---
SHIFT SUMMARY 79 YR F ON COMFORT CARE. NO ACUTE CHANGES THIS SHIFT. PT HAS SLEPT FOR MOST OF THIS SHIFT. EVENING MEDS WERE LATE PT WAS SLEEPING AND DID NOT WANT TO WAKE UP TO TAKE THEM. SHE LATER WOKE AND WAS AGREEABLE TO TAKE HER MEDS. SHE HAS BEEN VERY PLEASANT. WILL CONTINUE TO MONITOR. BED IN LOW POSITION AND CALL LIGHT IN REACH.
--- NOTE | 2024-12-17 13:45 | NUR ---
Spiritual Care Visit. Pt. is awake and welcomes my visit. Pt. verbalized that she remembered this registered dental assistant rda from my previous visit with her. Pt. is pleasant but does display evidence of confusion. Pt. verbalized that she was "afraid of what's next." This registered dental assistant rda wanted to identify whether her fears were spiritual or pragmatic, so I asked her to tell me about hers fears. When she did clarify it was clear that she was verbalizing logistic concerns. Pt. was asking about her fiduciary, Gabbi. Sought to normalize the Pt. experience. Prayed with the Pt. Pt. displayed evidence of lower anxiety. Pt. welcomed this registered dental assistant rda to return. Will continue to be available to the Pt.
--- NOTE | 2024-12-17 19:50 | NUR ---
SHIFT SUMMARY PT IS A/OX2-3, CONFUSION TO PLACE. ON COMFORT CARE. NO ACUTE CHANGES THROUGHOUT THIS SHIFT. PT REMAIN ON 4L NC FOR COMFORT, PT REPORTS USING 3L AT BASELINE. PT SLEPT THROUGHOUT MUCH OF THIS SHIFT. 1 PERSON ASSIST TO BSC. MEDS TOLERATED WHOLE WITH WATER.
--- NOTE | 2024-12-18 05:02 | NUR ---
SHIFT SUMMARY 79 YR F ON COMFORT CARE. NO ACUTE CHANGES THIS SHIFT. PT HAS SLEPT THROUGH THE NIGHT. NO C/O PAIN OR DISCOMFORT. NO NEW CHANGES TO REPORT. WILL CONTINUE TO MONITOR. BED IN LOW POSITION AND CALL LIGHT IN REACH.
[2024-12-18 07:30] VITALS: BP 114/67
--- NOTE | 2024-12-19 03:59 | NUR ---
SHIFT SUMMARY NO NEW CHANGES TO REPORT. PT HAS SLEPT FOR MOST OF THE NIGHT. NO C/O PAIN OR DISCOMFORT THIS SHIFT. WILL CONTINUE TO MONITOR. BED IN LOW POSITION AND CALL LIGHT IN REACH.
[2024-12-20] MEDS ORDERED: NS 250 ML IV PRN (03:50)
--- NOTE | 2024-12-20 04:24 | NUR ---
Shift Summary Pt recently placed on comfort care. Pt c/o 8 pain at the start of the shift, mostly in her back. I gave her scheduled methadone and no complaints since then. Pt believed she would need Ambien to help her sleep but after taking 200mg of scheduled Trazodone pt slept well t/o the night. Purewick in place for incontinent voids.
[2024-12-20 15:31] VITALS: BP 116/95
--- NOTE | 2024-12-20 17:49 | NUR ---
SHIFT SUMMARY PT A&OX3 W/ SOME CONFUSION AT TIMES REQUIRING REORIENTATION, ON 4L O2 NC, TOLERATING PO, VOIDING, AND PAIN MANAGED PER EMAR. NO OTHER ACUTE CHANGES. CALL LIGHT WITHIN REACH AND PT ABLE TO MAKE NEEDS KNOWN.
[2024-12-20] MEDS ORDERED: Docusate Sodium 100 MG Cap PO SCH (21:45)
--- NOTE | 2024-12-21 05:14 | NUR ---
Shift Summary Pt AOx4 tonight, somewhat forgetful. She c/o no BM for 1 week, gave bowel meds per EMAR. Pt did c/o 9/10 back pain however after scheduled bedtime methadone and trazadone pt was able to sleep t/o the night w/o interruption. Incontinent voids drained via purewick. Pt is still fearful that she will have to go back to her grandson's house, I reassured her we are working on placement.
[2024-12-21] MEDS ORDERED: Polyethylene Glycol 3350 17 gm PO PRN (11:25)
[2024-12-21] MEDS ORDERED: Docusate Sodium/Senna 1 Tab PO PRN ×2 (11:55→12:00)
[2024-12-21] MEDS ORDERED: Docusate Sodium/Senna 1 Tab PO ONE (12:00)
--- NOTE | 2024-12-21 18:39 | NUR ---
SHIFT SUMMARY PT PAIN IMPROVED FROM YESTERDAY. NO OTHER ACUTE CHANGES. CALL LIGHT WITHIN REACH AND PT ABLE TO MAKE NEEDS KNOWN.
--- NOTE | 2024-12-22 05:00 | NUR ---
AAOX3, COOPERATIVE AND PLESANT WITH COMFORT CARES. 4L O2 VIA NC. PERWICK IN PLACE, NEW PERWICK AND BRIEFS CHANGED. PT C/O CONSTIPATION, MOM GIVEN. NO ACUTE NEEDS OVERNIGHT. PT IS AWAITING HOSPICE PLACEMENT.
[2024-12-22] MEDS ORDERED: Docusate Sodium 250 MG Cap PO SCH (09:00)
--- NOTE | 2024-12-22 16:55 | NUR ---
SHIFT SUMMARY PT AWAKE DURING SHIFT REPORT, SITTING UP IN BED. PRAIRIE BAND, BUT PLEASANT AND CO-OP WITH CARE. ADMITTED FOR RESP FAILURE W/ HYPOXIA. PT WAITING PLACEMENT ON HOSPICE, PER REPORT. SKIN TEAR NOTED TO LUE FORARM. SKIN IS VERY THIN AND FRAGILE. BED BATH AND LINEN CHANGE DONE AFTER BREAKFAST. MEPILEX DRSG PLACED TO L ARM AND NEW MEPILEX PLACED TO COCCYX FOR PREVENTATIVE MEASURES. PT INCONTINENT OF BLADDER; PUREWICK IN PLACE. PT REQUESTING MORE FOR BOWEL CARE; GIVEN PER EMAR; ONLY SMEARS TO PRESENT, PER HUMAN SERVICES SUPERVISOR'S. PT REQUESTED DIET CHANGED TO MINCED AND MOIST D/T LACK OF DENTURES; DONE PER REQUEST, PT GRATEFUL. DENIES FURTHER NEEDS AT THIS TIME. CALL LT IN REACH.
--- NOTE | 2024-12-23 06:49 | NUR ---
COMFORT CARE: AWAITING PLACEMENT IN FACILITY WITH HOSPICE. ORIENTED X 3, FORGETFUL. USES CALL LIGHT APPROPRIATELY FOR NEEDS. BEDREST, ABLE TO MOVE SIDE TO SIDE FOR CARES. 3L O2 VIA NC. SLEPT WELL THROUGHOUT THE NIGHT, NO ACUTE NEEDS.
--- NOTE | 2024-12-23 09:00 | NUR ---
pt laying in bed awake, a/ox3, cooperative with care, but can become agitated quickly, lungs have some fine crackles, on 3.5 liters which is baseline, no cough noted at this time, hrr, states her knees hurt, pain meds with am meds, btx4, briefs in place and purwick in place, skin is frail, has skin tear to r arm, bed rest, moves arms, and can help turn in bed, call light in reach.
--- NOTE | 2024-12-23 19:28 | NUR ---
pt has had an uneventful day, medicated with roxinol once with good relief, no acute changes this shift. call light in reach, is able to make needs known.
[2024-12-23] MEDS ORDERED: Polyethylene Glycol 3350 17 gm PO SCH (21:00)
--- NOTE | 2024-12-24 06:34 | NUR ---
PLC TECHNICIAN SUMMARY: PT ON COMFORT CARE AWAITING PLACEMENT IN FACILITY. A&O X3, FORGETFUL. NO ACUTE CHANGES THIS SHIFT. PT ON BED REST. PUREWICK IN PLACE DRAINING YELLOW URINE. INCONTINENT OF BOWEL. 2 PERSON ASSIST WITH BED MOBILITY. TURN Q2H SCHEDULE IN PLACE. CALL LIGHT IN REACH. BED IN LOWEST POSITION. CARES CONTINUE ORDERED.
[2024-12-24] MEDS ORDERED: Docusate Sodium 250 MG Cap PO PRN (09:50)
[2024-12-24] MEDS ORDERED: Polyethylene Glycol 3350 17 gm PO PRN (09:50)
--- NOTE | 2024-12-24 18:15 | NUR ---
SHIFT SUMMARY PATIENT ALERT AND INTERACTIVE. PATIENT CONTINUES TO HAVE LOOSE STOOLS. STOOL SOFTENERS HELD TODAY. PATIENT CONTINUES TO BE ON COMFORT CARE. WAITING FOR SPECIAL PROCEDURES TECH MEDICAID FOR PLACEMENT.
--- NOTE | 2024-12-25 17:49 | NUR ---
SHIFT SUMMARY PATIENT ALERT AND INTERACTIVE. PATIENT EASILY SOB WITH POSITIONING. PATIENT MEDICATED X2 FOR AIR HUNGER TODAY. PATIENT CONTINUES TO HAVE FREQUENT STOOLS BUT FORMED. PATIENT CONTINUES ON COMFORT CARE, AWAITING ECOLOGICAL RISK ASSESSOR MEDICAID FOR PLACEMENT
--- NOTE | 2024-12-26 07:31 | NUR ---
ASSUMED CARE OF PATIENT. AWAKE DURING SHIFT-CHANGE REPORT. O2 @ 2LPM/NC. PUREWICK DRAINING TO SUCTION. PROVIDED WITH ICE WATER. BED IN LOWEST POSITION. CALL LIGHT WITHIN REACH. ALL NEEDS MET.
--- NOTE | 2024-12-26 14:24 | NUR ---
MEDICATED PRN HYDROXYZINE AND ROXANOL FOR 10/10 PAIN AND ANXIETY.
[2024-12-26 19:25] VITALS: BP 143/117
--- NOTE | 2024-12-26 19:27 | NUR ---
END OF SHIFT SUMMARY: A&Ox3-4; EASILY REORIENTED WHEN FORGETFUL. PLEASANT AND COOPERATIVE WITH CARE. CALLS APPROPRIATELY AND IS ABLE TO ADVOCATE NEEDS EFFECTIVELY. LIMITED MOBILITY ERGO PUREWICK IN PLACE. MEDS WHOLE c PUREE (PREFERS APPLESAUCE). C/O PAIN TODAY FOR WHICH SHE RECEIVED ROUTINE METHADONE AND GABAPENTIN. REQUESTING MIRALAX BE ADDED BACK INTO REGIMEN. BED IN LOWEST POSITION, CALL LIGHT WITHIN REACH, ALL NEEDS MET. REPORT TO ONCOMING NURSE.
[2024-12-27 05:57] VITALS: BP 114/67
--- NOTE | 2024-12-27 06:29 | NUR ---
SHIFT SUMMARY PT ALERT AND ORIENTED TIMES 2-3. PT ADMITTED FOR ACUTE ONCHRONIC RESPIRATORY FAILURE WITH HYPOXIA. PT IS COMFORT CARE, HAS ROXANOL FOR AIR HUNGER. HAS REDNESS ON BUTTOCKS. PT IS ON ROOM AIR, PT HAS PUREWICK, ABLE TO MAKE NEEDS KNOWN TO STAFF. BED IN LOW POSITION, CALL LIGHT WITHIN REACH, RAILS TIMES 2.
--- NOTE | 2024-12-27 07:36 | NUR ---
ASSUMED CARE OF PATIENT. AWAKE, WATCHING TV, DURING SHIFT-CHANGE REPORT. NO ACUTE NEEDS. BED IN LOWEST POSITION. CALL LIGHT WITHIN REACH.
--- NOTE | 2024-12-27 19:33 | NUR ---
END OF SHIFT SUMMARY: A&Ox3-4; EASILY REORIENTED WHEN FORGETFUL. PLEASANT AND COOPERATIVE WITH CARE. CALLS APPROPRIATELY AND IS ABLE TO ADVOCATE NEEDS EFFECTIVELY. LIMITED MOBILITY D/T PAIN. PUREWICK IN PLACE. MEDS WHOLE c PUREE (PREFERS APPLESAUCE). C/O PAIN ROUTINE METHADONE AND GABAPENTIN IN ADDITION TO PRN ROXANOL T/O DAY. INCREASED ANXIETY, ESPECIALLY AFTER SPEAKIN TO SON ON THE PHONE. MEDICATED PRN OLANZAPINE AND PRN HYDRALAZINE. BED IN LOWEST POSITION, CALL LIGHT WITHIN REACH, ALL NEEDS MET. REPORT TO ONCOMING NURSE.
--- NOTE | 2024-12-28 06:15 | NUR ---
PT WITH MINIMAL PAIN MEDICATED X2 WITH ROXINOL. PURWIK IN PLACE. PT TURNS WITH MINIMUM ASSIST. REMAINS ON COMFORT CARE. PLAN TO D/C TO SNF WITH HOSPICE.
--- NOTE | 2024-12-28 16:55 | NUR ---
SHIFT SUMMARY PT AOX4, COOPERATIVE, ABLE TO MAKE NEEDS KNOWN. PT IS COMFORT CARE, HAS NOT BEEN OUT OF BED FOR THE SHIFT. ON 3.5 L O2 CURRENTLY. LUNGS WHEEZY ALL DILLARD. PT DOES HAVE WOUND ON LEFT INNER THIGH, POSSIBLY FROM INCONTINENCE BRIEF BEING TOO TIGHT, APPLIED MEPILEX. BED IN LOWEST POSITION, CALL LIGHT WITHIN REACH.
--- NOTE | 2024-12-28 16:56 | NUR ---
ASSESSED PATIENT. SHE IS COMFORTABLE AND ALERT. PROVIDED THERAPUTIC CONVERSATION. SHE REPORTS NO NEEDS AT THIS TIME. PC WILL CONTINUE TO FOLLOW.
[2024-12-28] MEDS ORDERED: GuaiFENesin 600 MG TabCR PO SCH (21:00)
--- NOTE | 2024-12-29 07:37 | NUR ---
SHIFT SUMMARY PT IS A&OX4. COMFORT MEASURES MAINTAINED. PT WEARING 3.5L NC OXYGEN. C/O GENERALIZED PAIN 07/09. TOLERATING A MINCED AND MOIST DIET. TAKES HER PILLS WHOLE WITH APPLESAUCE OR PUDDING. WICKING SYSTEM DRAINING LARGE AMOUNTS OF CLEAR, YELLOW URINE VIA WICKING SYSTEM. HAVING SMEARS OF STOOL. BED IN LOWEST POSITION, CALL LIGHT WITHIN REACH. ABLE TO MAKE NEEDS KNOWN.
[2024-12-29] MEDS ORDERED: Mometasone/Formoterol MDI 200/5 mcg 13 GM INH SCH (11:15)
--- NOTE | 2024-12-29 16:49 | NUR ---
SHIFT SUMMARY PT AOX4, COOPERATIVE, ABLE TO MAKE NEEDS KNOWN. PT IS COMFORT CARE, REMAINED TO BED ALL SHIFT. PURE WICK IN PLACE AND SUCTIONING WELL. TOLERATING PO MEDICATION IS APPLESAUCE APPROPRIATELY. NO OTHER ACUTE EVENTS TOOK PLACE THIS SHIFT. BED IN LOWEST POSITION, CALL LIGHT WITHIN REACH.
--- NOTE | 2024-12-30 03:23 | NUR ---
PACK PRESS OPERATOR SUMMARY: PT ON COMFORT CARE MEASURES. AWAITING PLACEMENT. A&O X4. MAKES NEEDS KNOWN. NO ACUTE CHANGES. RESTING IN BED T/O SHIFT. DENIES PAIN. CALL LIGHT IN REACH. BED IN LOWEST POSITION. CARES ONGOING ORDERED.
--- NOTE | 2024-12-30 18:41 | NUR ---
NO ACUTE CHANGES THIS SHIFT. A/OX4, TURNING Q2 HOURS. DRESSING TO L POSTERIOR THIGH CHANGED TODAY AND REMAINS C/D/I. 3LO2 TO MAINTAIN SATS. PATIENT AWAITING HOPSICE PLACEMENT FOR DC. PLEASANT AND COOPERATIVE, MAKES NEEDS KNOWN.
--- NOTE | 2024-12-31 03:19 | NUR ---
INSURANCE COUNSEL SUMMARY: PT ON COMFORT MEASURES. A&O X4, MAKES NEEDS KNONW. NO ACUTE DISTRESS OR CHANGES T/O SHIFT. 1 PERSON ASSIST WITH BED MOBILITY, TURN Q 2H SCHEDULE IN PLACE. CALL LIGHT IN REACH. BED IN LOWEST POSITION. CARES ONGOING ORDERED.
--- NOTE | 2024-12-31 18:28 | NUR ---
NO ACUTE CHANGES THIS SHIFT. PATIENT UP IN CHAIR TODAY FOR LUNCH AND TO GET HER HAIR CUT THIS EVENING. UP WITH FWW AND SBA. TOLERATING MINCED AND MOIST DIET. AWAITING MEDICAID AND PLACEMENT.
--- NOTE | 2025-01-01 05:57 | NUR ---
SHIFT SUMMARY PT HAS BEEN RESTING COMFORTABLY IN BED. PT REMAINS AOX4, CALM AND COOPERATIVE. PT HAS BEEN ON 3LNC, TOLERATING O2 WELL. PT WAS INITIALLY SITTING ON CHAIR AT START OF SHIFT. SHE WAS ABLE TO STAND AND PIVOT TO BED WITH MINIMAL ASSIST. PT HAD NO COMPLAINTS OVERNIGHT. PT HAD UNEVENTFUL EVENING.
--- NOTE | 2025-01-01 16:38 | NUR ---
CASE CONFRENCE. DISCUSSED CASE WITH BEDSIDE RN. PATIENT IS COMFORTABLE AT THIS TIME. SHE IS SITTING UP AND TALKING.
--- NOTE | 2025-01-02 04:53 | NUR ---
SHIFT SUMMARY 79 YR F ADMITTED ON . COMFORT CARE. NO ACUTE CHANGES THIS SHIFT. PT APPEARS TO HAVE SLEPT COMFORTABLY THROUGHOUT THE NIGHT. NO CHANGES TO REPORT. BED IN LOW POSITION AND CALL LIGHT IN REACH.
[2025-01-02 08:00] VITALS: BP 111/64
[2025-01-02] MEDS ORDERED: Sertraline HCl 50 MG Tab PO SCH (12:00)
[2025-01-02 15:05] VITALS: BP 117/84
--- NOTE | 2025-01-02 16:04 | NUR ---
Spiritual Care Visit. Pt. is awake in bed and welcomes my visit. Pt. is generally pleasant and begins to verbalize about a private alf that she would like to consider. Listen with interest and empathy. Pt. displayed evidence of being mostly aware and engaged in our visit. Prayed with the Pt. Pt. verbalized gratitude for the spiritual care visit.
--- NOTE | 2025-01-02 20:04 | NUR ---
SHIFT SUMMARY PATIENT ALERT AND INTERACTIVE. CONFUSED AT TIMES AND EMOTIONAL. PATIENT UP TO CHAIR AND USING BEDSIDE COMMODE. PATIENT MEDICATED X1 WITH ROXINAL FOR AIR HUNGER. PATIENT CONCERNED THAT SHE WILL BE DISCHARGED IF SHE WALKS.
[2025-01-03 07:37] VITALS: BP 108/69
[2025-01-03] MEDS ORDERED: Saline Nasal Spray 45 ML PRN (13:35)
[2025-01-03 16:27] VITALS: BP 106/92
--- NOTE | 2025-01-03 18:00 | NUR ---
SHIFT SUMMARY PATIENT CONTINUES ON COMFORT CARE. PATIENT DID NOT GET OOB TODAY. PATIENT INTERACTIVE AND ABLE TO MAKE NEEDS KNOWN. NO NEED FOR ROXINAL TODAY. PATIENT EVALUATED BY [facility] TODAY. PATIENT HAD A VISITOR ALSO TODAY. PATIENT CONTINUES TO BE FORGETFUL AND EASILY TEARFUL.
[2025-01-04] MEDS ORDERED: OxyCODONE HCL 5 MG TAB PO PRN (17:25)
[2025-01-04] MEDS ORDERED: Ipratropium/Albuterol SulF 2.5-0.5MG/3 ML Amp INH SCH (17:25)
[2025-01-04] MEDS ORDERED: Albuterol HFA200 ACT/6.7 GM INH INH PRN (17:30)
--- NOTE | 2025-01-04 18:34 | NUR ---
SHIFT SUMMARY PT REMAINS ON COMFORT CARE, AOX4, 1 ASSIST WITH THE FWW TO THE CHAIR/BSC. CALLS AND MAKES HER NEEDS KNOWN. MEDICATED FOR PAIN PER THE EMAR. REPOSITIONED THROUGHOUT THE SHIFT. PURWICK IN PLACE, CHANGED THIS SHIFT. PT HAS HAD NO ACUTE COMPLAINTS. SHE APPEARS COMFORTABLE. CALL LIGHT WITHIIN REACH, BED LOCKED AND IN THE LOWEST POSITION. WILL REPORT TO ONCOMING NURSE.
[2025-01-05] MEDS ORDERED: FentaNYL Citrate 50 MCG/ML 2 ML Injection IV PRN (06:10)
--- NOTE | 2025-01-05 17:21 | NUR ---
SHIFT SUMMARY PT AOX4, 1 ASSIST WITH THE FWW TO THE CHAIR/BSC. COMFORT CARE ORDERS IN PLACE. MEDICATED PER THE EMAR. REPOSITIONED THROUGHOUT THE SHIFT. PURWICK IN PLACE AND DRAINING. CALLS TO MAKE HER NEEDS KNOWN. NO ACUTE ISSUES. CALL LIGHT WITHIN REACH, BED LOCKED AND IN THE LOWEST POSITION. WILL REPORT TO ONCOMING NURSE.
[2025-01-05] MEDS ORDERED: Ipratropium/Albuterol SulF 2.5-0.5MG/3 ML Amp INH PRN (21:20)
[2025-01-05] MEDS ORDERED: Tiotropium Bromide 2.5 MCG/ACT MIST INHAL (10 ACT/4 GM) INH SCH (21:20)
--- NOTE | 2025-01-06 05:03 | NUR ---
COMFORT CARE SHIFT SUMMARY PATIENT IS ALERT AND ORIENTED. PATIENT HAS HAD NO ACUTE EVENTS THIS SHIFT. PATIENT HAS COMPLAINED OF PAIN AND MEDICATED PER EMAR. PATIENT HAS NO COMPLAINTS OF SOB, NAUSEA, OR VOMITTING. BED IN LOCKED AND LOWEST POSITION. CALL LIGHT IN PLACE.
[2025-01-06] MEDS ORDERED: BusPIRone HCl 10 MG Tab PO SCH (09:00)
[2025-01-06 15:33] VITALS: BP 99/61
[2025-01-06] MEDS ORDERED: Sertraline HCl 50 MG Tab PO SCH (18:00)
--- NOTE | 2025-01-06 19:23 | NUR ---
SUMMARY- PT A/O X4, USES CALL LIGHT TO MAKE NEEDS KNOWN. PUREWICK IN USE FOR URINE. PAIN CONTROLLED WITH OXY PRN. HAD KIESHA AND DOES NOT LIKE THE WAY SHE FEELS. ATARAX ADMIN FOR ANXIETY WITH ADQ RELEIF. PT TOLERATING FOOD AND FLUIDS. HAD BM TODAY. AWAITING BED FOR HOSPICE . REORTED ALL TO [facility]
[2025-01-06] MEDS ORDERED: DULoxetine HCL 30 MG Cap DR PO SCH (21:00)
--- NOTE | 2025-01-07 05:59 | NUR ---
SHIFT SUMMARY PATIENT IS ALERT AND ORIENTED. PATIENT HAS HAD NO ACUTE EVENTS THIS SHIFT. PATIENT HAS NO COMPLAINTS OF PAIN, NAUSEA, SOB OR VOMITTING. PUREWICK IN PLACE. BED IN LOCKED AND LOWEST POSITION. CALL LIGHT IN PLACE. WILL MONITOR UNTIL SHIFT CHANGE.
--- NOTE | 2025-01-07 11:45 | NUR ---
Spiritual Care Visit. Pt. is awake and once she recognized this turntable man she welcomed my visit. Facilitated a progress discussion whereby the Pt. verbalized that she is awaiting to be approved for medicaid. Listen with empathy and interest. Pt. displays evidence of trust. Prayed with Pt. Pt. verbalized that she feels very engaged with our time of prayer. Pt. verbalized gratitude for the spiritual care visit, and welcomed this turntable man to return.
--- NOTE | 2025-01-07 18:03 | NUR ---
NO CHANGES FOR PT. PT HAD C/O PAIN AND ANXIETY WITH BREAK THROUGH FROM PRN MEDICATIONS, SEE EMAR FOR DETAILS.
--- NOTE | 2025-01-08 04:28 | NUR ---
SHIFT SUMMARY: PATIENT A/OX4, PLEASANT AND COOPERATIVE c CARE. AT BEGINNING OF SHIFT, PATIENT REPORTS PAIN "9/10 ALL OVER". PATIENT MEDICATED FOR PAIN FOR COMFORT c GOOD EFFECT. PATIENT SLEPT ON/OFF T/O SHIFT. PATIENT REPOSITIONED, JEANCARLOS CARE, ATTENDS CHANGED AND PUREWCIK IN PLACED. PATIENT ON 3L O2 VIA NC. CALL LIGHT IN REACH.
[2025-01-08 16:03] VITALS: BP 90/63
--- NOTE | 2025-01-08 17:33 | NUR ---
NO ACUTE CHANGES THIS SHIFT. PT IS ALERT AND ORIENTED X4, ABLE TO EXPRESS NEEDS. TREATED PAIN PER EMAR. PT REPORTS ANXIETY THROUGHOUT SHIFT. TREATED PER EMAR.
--- NOTE | 2025-01-09 18:34 | NUR ---
SHIFT SUMMARY PT A&OX4 AND ANSWERS QUESTIONS APPROPRIATELY. PT ON COMFORT CARE, REPOSITIONED Q2HRS. PT RECEIVED SCHEDULED AND PRN MEDICATIONS, TREATED PER EMAR FOR PAIN. PUREWICK IN PLACE. NO ACUTE EVENTS AT THIS TIME. PT LEFT IN A POSITION OF SAFETY WITH FALL PRECAUTIONS IN PLACE AND CALL LIGHT IN REACH.
--- NOTE | 2025-01-10 19:31 | NUR ---
SHIFT SUMMARY PT A&OX4. PT ADMITTED DUE TO ACUTE ON CHRONIC RESP FAILURE WITH HYPOXIA. PT ON 3L O2 FOR COMFORT. COMFORT CARE ASSESSMENTS COMPLETE. ATTENDS CHANGED PRN AND PURWICK IN PLACE. PT TURNED Q2. PT REPORTS GENERALIZED PAIN, PAIN MANAGED PER EMAR. BED IN LOWEST POSITION, CALL LIGHT IN REACH. NO ACUTE CHANGES DURING SHIFT. PT TAKES MEDS WHOLE WITH APPLESAUCE.
--- NOTE | 2025-01-11 18:33 | NUR ---
SHIFT SUMMARY PT AOX4, COOPERATIVE, ABLE TO MAKE NEEDS KNOWN. PT HAS REMAINED IN BED FOR ENTIRE SHIFT. NO IV ACCESS. PURE WICK ACTIVE AND INTACT. PT HAD BM 01/10/25, NO BM TODAY. ON O2 CURRENTLY. BED IN LOWEST POSITION, CALL LIGHT WITHIN REACH.
--- NOTE | 2025-01-12 05:28 | NUR ---
SHIFT SUMMARY PT ALERT AND ORIENTED TIMES 3-4. PT ADMITTED FOR ACUTE ON CHRONIC RESPIRATORY FAILURE WITH HYPOXIA. PT IS COMFORT CARE. ABLE TO MAKE NEEDS KNOWN, APPROPRIATE WITH CALL LIGHT. PT TAKES MEDS WHOLE WITH APPLESAUCE AND AT BEDTIME ATARAX WITH TRAZADONE. BED IN LOW POSITION, CALL LIGHT WITHIN REACH, RAILS TIMES 2.
--- NOTE | 2025-01-12 16:33 | NUR ---
SHIFT SUMMARY PT AOX4, COOPERATIVE, ABLE TO MAKE NEEDS KNOWN. PUREWICK ACTIVE AND INTACT. UTILIZING O2 VIA NC CONTINUOUSLY. NO COMPLAINTS OF PAIN THIS SHIFT. PT ON COMFORT CARE. TAKES MEDS WHOLE WITH APPLESAUCE. NO SKIN ISSUES. NO BM THIS SHIFT. BED IN LOWEST POSITION, CALL LIGHT WITHIN REACH.
[2025-01-13] MEDS ORDERED: Ondansetron 4 MG SoluTab MM PRN (12:00)
[2025-01-13] MEDS ORDERED: Ondansetron 4 MG SoluTab MM ONE (12:00)
[2025-01-13] MEDS ORDERED: Docusate Sodium/Senna 1 Tab PO PRN (16:55)
--- NOTE | 2025-01-13 18:28 | NUR ---
SHIFT SUMMARY PT A&OX4. PT ADMITTED DUE TO ACUTE ON CHRONIC RESP FAILURE WITH HYPOXIA. PT ON 3L OF O2 VIA N/C FOR COMFORT. COMFORT CARE ASSESSMENTS COMPLETE. ATTENDS CHANGED PRN AND PURWICK IN PLACE. PT TURNED Q2 AND PRN. PT REPORTS GENERALIZED PAIN. PAIN MANAGED PER EMAR. BED IN LOWEST POSITION, CALL LIGHT IN REACH. NO ACUTE CHANGES DURING SHIFT. PT TAKES MEDS WHOLE WITH APPLESAUCE. PT REPORTED NAUSEA STARTED YEST. CALLED DR. HUTTON FOR ORDER FOR ZOFRAN, PT REPORTED NAUSEA RELIEF. DR. MORALES ORDERED SCHEDULED STOOL SOFTNER IN AM PER PT REQUEST.
[2025-01-13] MEDS ORDERED: DULoxetine HCL 60 MG Capsule DR PO SCH (21:00)
--- NOTE | 2025-01-14 04:17 | NUR ---
PT A&O X4, REMAINS ON BR, REMAINS ON COMFORT CARE. PAIN MEDICATED WITH OXYCODONE, PURWIK IN PLACE, CONTINUES TO HAVE ANXIETY AND IS MEDICATED WITH ATARAX. POOR APPETITE, GOOD PO INTAKE OF FLUIDS. AWAITING FOR D/C TO SNF WITH HOSPICE.
[2025-01-14] MEDS ORDERED: Docusate Sodium/Senna 1 Tab PO SCH (09:00)
--- NOTE | 2025-01-14 15:14 | NUR ---
Spiritual Care Visit. Pt. is awake in bed and welcomed my visit. Facilitated an update and Pt. verbalized that she had made arrangements to stay in a [facility], but the hospital was looking to transfer her to another SNF. The Pt. is on comfort care though she displays evidence of being alert and capable of speaking for herself. This division director watched the [employer] splash down with the Pt. as that was what she had been watching pior to my visit. Afterward, I prayed with the Pt. Pt. verbalized gratitude for the spiritual care visit.
[2025-01-14] MEDS ORDERED: Sertraline HCl 100 MG Tab PO SCH (18:00)
--- NOTE | 2025-01-14 19:42 | NUR ---
SHIFT SUMMARY PT A&OX4. PT ADMITTED DUE TO ACUTE ON CHRONIC RESP FAILURE WITH HYPOXIA. PT ON 3L O2 VIA N/C FOR COMFORT. COMFORT CARE ASSESSMENTS COMPLETE. ATTENDS CHANGED PRN AND PERWICK IN PLACE. PT TURNED Q2 AND PRN. PT REPORTS GENERALIZED PAIN. PAIN MANAGED PER EMAR. BED IN LOWEST POSITION. CALL LIGHT IN REACH. NO ACUTE CHANGES DURING SHIFT. PT TAKES MEDS WHOLE WITH APPLESAUCE.
--- NOTE | 2025-01-15 04:48 | NUR ---
SHIFT SUMMARY; PATIENT SLEPT IN LONG INTERVALS. DID NOT NOT REQUIRE ANY PRN MEDS. REMAINS ON COMFORT CARE.
[2025-01-15 19:41] VITALS: BP 152/87
--- NOTE | 2025-01-16 05:54 | NUR ---
SHIFT SUMMARY PT A&OX4 AND ANSWERS QUESTIONS APPROPRIATELY. MEDICATED PER EMAR AND PRN. PT ON COMFORT CARE. PT RECEIVED SCHEDULED AND PRN MEDICATIONS WITH NO ADVERSE EFFECTS. PT REPOSITIONED [id number]. PUREWICK IN PLACE. NO ACUTE EVENTS AT THIS TIME. PT LEFT IN A POSITION OF SAFETY WITH FALL PRECAUTIONS IN PLACE AND CALL LIGHT IN REACH.
--- NOTE | 2025-01-16 06:36 | NUR ---
MED PASS ATTEMPTED AT 0615 TO GIVE MORNING DOSE OF OMEPRAZOLE, PT SLEEPING AND NOT AWAKE [facility] FOR SAFE MED PASS. WILL ALERT DAY SHIFT
[2025-01-16] MEDS ORDERED: Fluticasone 0.05% Nasal Spray SCH (11:00)
--- NOTE | 2025-01-16 17:31 | NUR ---
SHIFT SUMMARY NO ACUTE CHANGES. PT REMAINS ON COMFORT CARE. TOOK ALL MEDICATIONS WHOLE IN APPLESAUCE. TREATED FOR PAIN PER EMAR AT PT REQUEST. PT REFUSED MULTIPLE REQUESTS TO REPOSITION. PT DENIES ANY DISTRESS OR SIGNIFICANT DISCOMFORT. PT CURRENTLY RESTING PEACEFULLY IN HOSPITAL BED WITH BED IN LOWEST POSITION AND CALL LIGHT WITHIN REACH. PT USES CALL LIGHT APPROPRIATELY.
[2025-01-16 19:20] VITALS: BP 101/64
--- NOTE | 2025-01-17 03:11 | NUR ---
SHIFT SUMMARY/COMFORT CARE NOTE NO ACUTE CHANGES DURING THIS SHIFT. PT IS A/O X3-4, ABLE TO MAKE HER NEEDS KNOWN AND COOPERATIVE WITH CARE. PUREWICK DRAINING YELLOW URINE. PT REFUSES REPOSITIONING. BARRIER CREAM APPLIED ON THE BUTTOCKS. BED AT THE LOWEST POSITION, CALL LIGHT W/I REACH.
--- NOTE | 2025-01-17 16:19 | NUR ---
SHIFT SUMMARY: PATIENT HAS HAD NO NEW ACUTE CHANGES THIS SHIFT. PATIENT REMAINS ON COMFORT CARE MEASURE. PATIENT MEDICATED FOR PAIN FOR COMFORT. PATIENT RECEIVED SCHEDULED MEDS PER EMAR. PATIENT ALLOWED THIS RN/REFORMATORY ATTENDANT TO REPOSITIONED HER X2 THIS SHIFT. PATIENT HAS PUREWICK FOR INCONTINENT VOID. BED IN LOWEST POSITIONED. CALL LIGHT IN REACH.
--- NOTE | 2025-01-18 05:57 | NUR ---
SHIFT SUMMARY PT SLEPT LONG INTERVALS THROUGH THE NIGHT. PT REFUSED TO BE REPOSITIONED. PUREWICK DRAINING CLEAR YELLOW URINE. MEDICATED FOR PAIN PER EMAR. 3L NC MAINTAINED FOR COMFORT. BED IN LOWEST POSITION, CALL LIGHT WITHIN REACH, SIDRAILS UP X3.
--- NOTE | 2025-01-18 16:40 | NUR ---
SHIFT SUMMARY: PATIENT REMAINS ON COMFORT CARE MEASURES. PATIENT MEDICATED FOR PAIN PER EMAR FOR COMFORT c GOOD EFFECT. PATIENT ONLY ALLOWED THIS RN/GEOGRAPHIC INFORMATION SYSTEMS MANAGER TO REPOSITIONED HER ONCE THIS SHIFT. PATIENT WAS OFFERED TO BE REPOSITIONED T/O THE DAY, BUT DECLINED. PATIENT EATING AND DRINKING WELL, PUREWICK/ATTENDS IN PLACED FOR INCONTINENT VOID. BED IN LOWEST POSITIONED. CALL LIGHT IN REACH.
--- NOTE | 2025-01-19 03:03 | NUR ---
SHIFT SUMMARY PATIENT HAS APPEARED TO SLEEP COMFORTABLY THROUGHOUT THE SHIFT. SHE HAS BEEN ORIENTED X4. SHE HAS HER CALL LIGHT WITHIN REACH AND HAS BEEN INSTRUCTED TO CALL WITH ANY REQUESTS OR NEEDS. HER BED ALARM IS SET. SAFETY PRECAUTIONS ARE BEING MAINTAINED. PATIENT IS PLEASANT AND COOPERTIVE WITH ALL CARE.
--- NOTE | 2025-01-19 16:28 | NUR ---
SHIFT SUMMARY: PATIENT HAS HAD NO NEW CHANGES THIS SHIFT. PATIENT REMAINS ON COMFORT CARE MEASURES. PATIENT MEDICATED FOR PAIN FOR COMFORT. PATIENT REFUSED REPOSITIONING WHEN OFFERED, ONLY ALLOWED THIS RN/METAL SORTER REPOSITIONED HER X2. PATIENT IS EATING AND DRINKING WELL WITHOUT ANY DIFFICULTIES. JEANCARLOS CARE DONE, ATTENDS AND PUREWICKED IN PLACED FOR INCONTINENT VOID. PATIENT AWAITING FOR LT MEDICAID APPROVAL FOR SAFE PLACEMENT. BED IN LOWEST POSITIONED. CALL LIGHT IN REACH.
--- NOTE | 2025-01-20 06:34 | NUR ---
SHIFT SUMMARY PT ALERT AND ORIENTED TIMES 4 . PT ADMITTED FOR ACUTE ON CHRONIC RESPIRATORY FAILURE WITH HYPOXIA. PT IS ON COMFORT CARE AND HAS BEEN HERE FOR SEVERAL WEEKS NOW, WAITING FOR PLACEMENT. PT IS ON 3L O2, NO TELE AND NO IV ACCESS. PT TAKES MEDICATION WHOLE WITH APPLE SAUCE. PT HAS RASH IN GROIN AREA. PT HAS PUREWICKING SYSTEM IN PLACE THAT DRAINS WELL. PT IS RECEPTIVE TO CARE. PT APPEARED TO SLEEP THROUGHOUT THE NIGHT WITHOUT ISSUES. BED IN LOW POSITION, CALL LIGHT WITHIN REACH, RAILS TIMES 2.
[2025-01-20] MEDS ORDERED: Sennosides 8.6 MG Tab PO PRN (09:05)
--- NOTE | 2025-01-20 18:10 | NUR ---
SHIFT SUMMARY PT CONT LEVEL OF CARE THIS SHIFT WITH NO ACUTE CHANGES NOTED.
--- NOTE | 2025-01-21 03:51 | NUR ---
COMFORT CARE. AAOX3. 3L O2 VIA NC. SENNA GIVEN PER PT REQUEST, NO BM CHARTED SINCE 01/16/25. AWAIS, DRAINING WITHOUT ISSUES. NO IV ORDER. AWAITING MEDICAID FOR RESOURCE SPECIALIST TEACHER PLACEMENT, HOSPICE @ [facility]. NO ACUTE NEEDS OVERNIGHT.
--- NOTE | 2025-01-21 18:06 | NUR ---
SHIFT SUMMARY PT AOX4, CALLS TO MAKE HER NEEDS KNOWN. 1 ASSIST TO THE BSC. LARGE BM THIS SHIFT. PT MEDICATED PER THE EMAR FOR PAIN. ALSO FOR ANXIETY. REPOSITIONED TOLERATED THROUGH THE SHIFT, SHE REFUSES AT TIMES. PURWICK IN PLACE AND DRAINING. CALL LIGHT WITHIN REACH, BED LOCKED AND IN THE LOWEST POSITION. WILL REPORT TO ONCOMING NURSE.
--- NOTE | 2025-01-22 04:04 | NUR ---
SHIFT SUMMARY PATIENT ON COMFORT CARE. ALERT ORIENTED AND ONE ASSIST FWW/BSC. ON 3L O2 NC. DENIES CHEST PAIN, SOB, AND N/V. PUREWICK INTACT. TAKES MEDS WHOLE WITH APPLE SAUCE. NO IV ACCESS. COOPERATIVE WITH CARE. CALL LIGHT IN REACH. BED IN LOWEST POSITION. WILL CONTINUE TO MONITOR UNTIL DAY SHIFT NURSE ASSUMES CARE.
--- NOTE | 2025-01-22 11:12 | NUR ---
Spiritual Care Visit. Pt. is awake and welcomed my visit. Pt. displayed mild frustration about her inability to get transferred to the care facility that had saved a bed for her. Listened with knowledge of her sitiruation, emapthy, and a calm presence. Pt. verbalized that she does experience pain, but the medication takes the edge off of it. Prayed prayers of trust with the Pt. Afterward with tears the Pt. verbalized gratitude for the spiritual care visit.
--- NOTE | 2025-01-23 18:11 | NUR ---
SHIFT SUMMARY PT A&OX4. PT ADMITTED DUE TO ACUTE ON CHRONIC RESP FAILURE WITH HYPOXIA. PT ON 3L O2 FOR COMFORT. COMFORT CARE ASSESSMENTS COMPLETE. ATTENDS CHANGED PRN AND PURWICK IN PLACE. PT TURNED Q2. PT REPORTS GENERALIZED PAIN. PAIN MANAGED PER EMAR. BED IN LOWEST POSITION, CALL LIGHT IN REACH, NO ACUTE CHANGES DURING SHIFT. PT TAKES MEDS WHOLE WITH APPLESAUCE.
--- NOTE | 2025-01-24 05:37 | NUR ---
SHIFT SUMMARY NOC PT A/O X 4. PLEASANT AND COOPERATIVE WITH CARE. ON COMFORT CARE MEASURES. PT STILL RECEIVING HOME MEDICATIONS. GENERALIZED PAIN/ANXIETY BEING MANAGED PER EMAR. PUREWICK IN PLACE WITH COPIOUS OUTPUT OF CLEAR YELLOW URINE. PT HAD XL BM. PT ON 3L/NC, BUT GETS SOB WITH ANY EXERTION. PT IS CURRENTLY WAITING ON LT MEDICAID AUTHROIZATION FOR PLACEMENT. PT CURRENTLY RESTING WITH BED IN LOWEST POSITION, AND CALL LIGHT WITHIN REACH.
--- NOTE | 2025-01-24 18:37 | NUR ---
SHIFT SUMMARY PT A&OX4. PT ADMITTED DUE TO ACUTE ON CHRONIC RESP FAILURE WITH HYPOXIA. PT ON 3 L OF O2 FOR COMFORT. COMFORT CARE ASSESSMENTS COMPLETE. ATTENDS CHANGED PRN AND PURWICK IN PLACE. PT TURNED Q2. PT REPORTS GENERALIZED PAIN. PAIN MANAGED PER EMAR. BED IN LOWEST POSITION, CALL LIGHT IN REACH NO ACUTE CHANGES DURING SHIFT. PT TAKES MEDS WHOLE WITH APPLESAUCE.
--- NOTE | 2025-01-25 17:56 | NUR ---
SHIFT SUMMARY PT REMAINS ON COMFORT CARE. NO ACUTE CHANGES. A/Ox4. PT REPORTS BEING COMFORTABLE AND IN NO DISTRESS. PURWICK IN PLACE, LEAKS OFTEN. ATTENDS IN PLACE WELL. REPOSITIONED Q2H PT ALLOWED. APPETITE FAIR. PT IN GOOD SPIRITS. MEDICATED FOR PAIN PER EMAR. PT CURRENTLY RESTING IN BED WITH BED IN LOWEST POSITION AND CALL LIGHT WITHIN REACH.
--- NOTE | 2025-01-26 03:19 | NUR ---
SHIFT SUMM: PT IS A COMFORT CARE PT WHO HAS BEEN RESTING MOST OF THE EVENING. PT HAS BEEN ENJOYING PLAYING ON HER PHONE AND WATCHING TV. PT IS CURRENTLY ON 3L OF NC FOR COMFORT AND HAS A PURE WICK IN PLACE FOR INCONT, AND IS ON BEDREST. PT WAS MEDICATED WITH NIGHT TIME MEDICATION. PT HAS CALL LIGHT IN REACH AND HAS NO REQUESTS. BED ALARM SET FOR SAFETY.
--- NOTE | 2025-01-26 05:50 | NUR ---
PT REFUSED TO LET MYSELF AND THE PRINT DEVELOPER AUTOMATIC'S REPOSITION AND LOOK AT THE PATIENTS BRIEF. THE PT STATES THAT SHE IS CLEAN AND HAS NOT HAD A BM AND SHE WILL LET US KNOW IF SHE NEEDS CHANGED. PURE WICK SEEMS TO BE IN GOOD SPOT ANF SUCTIONING URINE WELL. PT TOOK MORNING MED FINE WITH APPLESAUCE BUT DOES NOT WANT REPOSITIONED
--- NOTE | 2025-01-26 17:35 | NUR ---
SHIFT SUMMARY NO ACUTE CHANGES. PT REMAINS ON COMFORT CARE. A/Ox4 AND ABLE TO MAKE NEEDS KNOWN. PURWICK REMAINS IN PLACE. BLADDER MANAGEMENT COMPLETED PER PROTOCOL. PT REPOSTIONED TOLERED/ALLOWED BY PT. FAIR APPETITE. TAKING MEDS WITHOUT DIFFICULTY. NO CONERNS OR CHANGES. PT CURRENTLY RESTING IN BED WATCHING TV. BED IN LOWEST POSITION AND CALL LIGHT WITHIN REACH.
--- NOTE | 2025-01-27 05:13 | NUR ---
SHIFT SUMMARY PT ALERT ORIENTED X 4 ABLE TO VERBALIZE NEEDS. [employer] USES A PUREWICK. SHE OFTEN REFUSES CARE AND WONT LET YOU CHANGE HER BRIEF HER PUREWICK OR TO BE TURNED. SHE FINALLY LET ME CHECK HER TO MAKE SURE THAT SHE WAS DRY. SHE REMAINS ON COMFORT CARE AND IS WAITING ON THE PAPERWORK TO GO TO [facility]. REMAINS ON 3L VIA GA. NO C/O CHEST PAIN OR PRESSURE. NO C/O SOB. SHE TAKES HER MEDS WITH APPLESAUCE. RESTING IN BED AT THIS TIME WITH CALL LIGHT IN REACH
--- NOTE | 2025-01-27 17:37 | NUR ---
SHIFT SUMMARY NO ACUTE CHANGES, A/Ox4, ABLE TO MAKE NEEDS KNOWN. REMAINS ON COMFORT CARE. TREATED PER EMAR FOR PAIN AND ANXIETY. CONTINUES TO WEAR 3 L/MIN VIA NC FOR COMFORT. PT ALLOWED PUREWICK TO BE CHANGED TODAY, REPOSITIONED TOLERATED/ALLOWED BY PT. SKIN C/D/I. PT CURRENTLY RESTING IN HOSPITAL BED WITH BED IN LOWEST POSITION, WATCHING TV - CALL LIGHT WITHIN REACH.
--- NOTE | 2025-01-29 03:46 | NUR ---
SHIFT SUMMARY PATIENT HAS BEEN SLEEPING FOR MOST OF THE SHIFT TONIGHT. SHE HAS NOT HAD ANY COMPLAINTS. PUREWICK CATHETER IN PLACE AND IS PATENT WITH ADEQUATE AMOUNTS OF URINE. PATIENT IS ORIENTED X4. SHE HAS HER CALL LIGHT WITHIN REACH. SAFETY PRECAUTIONS ARE BEING MAINTAINED.
--- NOTE | 2025-01-29 12:13 | NUR ---
Pt. is awake in bed and welcomes my visit. Pt. is pleasant but unsettled by paperwork that has kept her from going to her SNF. Listen with empathy and seek to normalize the Pt. experience. Pt. displays evidence of coping skills. Considered matters of how her danish has strengthened or wained. Pt. displays evidence of anelevated mood, though verbalized she did not have a good day yesterday. Prayed for the Pt. Pt. verbalized gratitude for the spiritual care visit.
--- NOTE | 2025-01-30 03:20 | NUR ---
SHIFT SUMMARY/COMFORT CARE NOTE NO ACUTE EVENTS DURING THIS SHIFT. PUREWICK IN PLACE, DRAINING TEA COLOR URINE. MEDICATED PER EMAR. PT REFUSES Q2HR REPOSITIONING DURING NIGHT HRS. GOOD INTAKE AT HS, SNACK AND FLUIDS PROVIDED. PT IS A/O X3-4, ABLE TO MAKE HER NEEDS KNOWN AND COOPERATIVE WITH CARE.
--- NOTE | 2025-01-31 03:14 | NUR ---
SHIFT SUMMARY NO ACUTE EVENTS DURING THIS SHIFT. PT REFUSES Q2HR REPOSITIONING. FLOATED WITH PILLOWS. HS SCHEDULED MEDICATIONS PER EMAR. PT RATES CHRONIC PAIN 9 T/O THE BODY. PRN OXYCODONE ADMINISTERED ORDERED AT HS. PER PT REQUEST, PRN HYDROXYZINE AT HS. PUREWICK DRAINING TEA COLOR URINE. BED AT THE LOWEST POSITION, CALL LIGHT W/I REACH. PT IS A/O X3-4, PLEASANT AND COOPERATIVE WITH CARE. PT IS ABLE TO MAKE HER NEEDS KNOWN AND CALLS APPROPRIATELY.
--- NOTE | 2025-01-31 19:25 | NUR ---
SHIFT SUMMARY PT A&OX4. PT ADMITTED DUE TO ACUTE ON CHRONIC RESP FAILURE WITH HYPOXIA, PT ON 3.5L OF O2 FOR COMFORT. COMFORT CARE ASSESSMENTS COMPLETE. ATTENDS CHANGED PRN AND PURWICK IN PLACE. PT TURNED Q2. PT REPORTS GENERALIZED PAIN, PAIN MANAGED PER EMAR. BED IN LOWEST POSITION, CALL LIGHT IN REACH. NO ACUTE CHANGED DURING SHIFT. TAKES MEDS WHOLE WITH APPLESAUCE.
--- NOTE | 2025-02-01 03:42 | NUR ---
SHIFT SUMMARY NO ACUTE EVENTS DURING THIS SHIFT. PT CONTINUES ON COMFORT CARE MEASURES. MEDICATED FFOR C/O 07/09 CHRONIC BACK PAIN PER EMAR. XL SOFT BM @HS. BED AT THE LOWEST POSITION, CALL LIGHT W/I REACH. PT IS A/O X4, ABLE TO MAKE HER NEEDS KNOWN AND COOPERATIVE WITH CARE.
--- NOTE | 2025-02-01 19:34 | NUR ---
SHIFT SUMMARY. PT A&OX4. PT ADMITTED DUE TO ACUTE ON CHRONIC RESP FAILURE WITH HYPOXIA, PT ON 3 L OF O2 FOR COMFORT. COMFORT CARE ASSESSMENTS COMPLETE. ATTENDS CHANGED PRN AND PURWICK IN PLACE. PT TURNED Q2. PT REPORTS GENERALIZED PAIN. PAIN MANAGED PER EMAR. BED IN LOWEST POSITION, CALL LIGHT IN REACH , NO ACUTE CHANGED DURING SHIFT. TAKES MEDS WHOLE WITH APPLESAUCE.
--- NOTE | 2025-02-02 03:31 | NUR ---
SHIFT SUMMARY PATIENT HAS APPEARED TO SLEEP COMFORTABLY DURING THE NIGHT. SHE HAS NOT HAD ANY COMPLAINTS. PUREWICK CATHETER IS IN PLACE. PATIENT HAS HER CALL LIGHT WITHIN REACH. SAFETY PRECAUTIONS ARE BEING MAINTAINED.
[2025-02-02] MEDS ORDERED: Menthol/Methyl Salicylate Crm 85 GM TUBE TOP PRN (17:30)
--- NOTE | 2025-02-02 19:47 | NUR ---
SHIFT SUMMARY PT A&OX4. PT ADMITTED DUE TO ACUTE ON CHRONIC RESP FAILURE WITH HYPOXIA, PT ON 3L OF O2 FOR COMFORT. COMFORT CARE ASSESSMENTS COMPLETE. ATTENDS CHANGED PRN AND PURWICK IN PLACE, PT TURNED Q2. PT REPORTS GENERALIZED PAIN. PAIN MANAGED PER EMAR. BED IN LOWEST POSITION, CALL LIGHT IN REACH, NO ACUTE CHANGES DURING SHIFT. TAKES MEDS WHOLE WITH APPLESAUCE. SENNA NOW SCHEDULED DAILY.
[2025-02-02] MEDS ORDERED: BusPIRone HCl 10 MG Tab PO SCH (21:00)
[2025-02-03] MEDS ORDERED: Sennosides 8.6 MG Tab PO SCH (09:00)
--- NOTE | 2025-02-03 16:56 | NUR ---
ANASTASIIA REMAINS ON COMFORT CARE, AWAITING PLACEMENT WITH INSURANCE PENDING. OXYGEN VIA NC AT 3LPM. INCONTINENT WITH PUREWICK, SUCTIONING YELLOW URINE. GOOD APPETITE. MINCED/MOIST DIET TEXTURE. LAST BM 02/02/25. GENERALIZED PAIN, ACUTE ON CHRONIC PAIN. A&O X4. ABLE TO CALL APPROPRIATELY.
--- NOTE | 2025-02-04 03:26 | NUR ---
SHIFT SUMMARY NO CHANGE IN PATIENTS CONDITION. SHE HAS BEEN SLEEPING FOR MOST OF THE NIGHT. SHE HAS NOT BEEN IN ANY DISTRESS. PUREWICK CATHETER IS IN PLACE. PATIENT IS ORIENTED X4. SHE HAS HER CALL LIGHT WITHIN REACH AND HER BED ALARM IS SET. SAFETY PRECAUTIONS ARE BEING MAINTAINED.
--- NOTE | 2025-02-04 16:54 | NUR ---
Spritual Care Visit. Pt. is awake in bed and welcomes my visit. Facilitated an update. Pt. displayed a pleasant attitude in spite of being unsettled about her placement issues. Considered matters of her danish and belief. Pt. verbalizes a confidance that God is in control of the details. Prayed with the Pt. Pt. verbalized gratitude for the spiritual care visit.
--- NOTE | 2025-02-04 18:08 | NUR ---
ASSUMED CARE OF PT. UNEVENTFUL DAY FOR PT, STAYED QUIETLY IN BED WITH NO COMPLAINTS, MINIMAL PAIN TODAY. PT FEEDING SELF AND MAKING NEEDS KNOWN.
--- NOTE | 2025-02-05 04:19 | NUR ---
SHIFT SUMMARY PT ALERT ORIENTED X 4 ABLE TO VERBALIZE NEEDS SHES WAITING ON PAPERWORK SO WE COULD DISCHARGE HER TO A SNF. C/O GENERALIZED PAIN MEDICATED WITH OXY WITH GOOD PAIN RELIEF. REMAINS ON 3L VIA NC. NO C/O SOB. CONTINUES ON COMFORT CARE. SHE HAS A PUREWICK DRAINING MARIAN URINE. SHE SLEPT WELL ALL NIGHT. RESTING IN BED AT THIS TIME WITH CALLLIGHT IN REACH
[2025-02-05 13:04] LABS: Bun/Creatinine Ratio 31.5 (12.0-20.0); Calcium, Blood 9.1 mg/dL (8.5-10.1); Creatinine, Blood 0.45 mg/dL (0.40-1.00); Potassium, Blood 3.6 mmol/L (3.5-5.5)
--- NOTE | 2025-02-05 14:50 | NUR ---
HEAT TREATER APPRENTICE AND RN ATTEMPTED AT REPOSITIONING AND CHANGING WET ATTENDS. PATIENT VERBALLY THREATENED TO THROW THEIR PHONE AT US AND WAS SCREAMING.
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
--- NOTE | 2025-02-06 05:13 | NUR ---
SHIFT SUMMARY PT CONTINUES WITH COMFORT CARE. SLEPT LONG INTERVALS THROUGH THE NIGHT. PUREWICK DRAINING YELLOW URINE. MEDICATED FOR PAIN AND ANXIETY PER EMAR. PT REFUSING TO TURN DURING THE NIGHT. PILLOWS POSITIONED TO KEEP PT "FLOATED". R BUTTUCK AND SMALL AREA AT COCCYX RED/ BLANCHABLE WHEN PT ALLOWED POSITION CHANGE AND JEANCARLOS CARE LAST PM. 3L NC MAINTAINED. BED IN LOWEST POSITION, CALL LIGHT WITHIN REACH, SIDERAILS UP X2.
--- NOTE | 2025-02-06 18:07 | NUR ---
SHIFT SUMMARY PAIN AND ANXIETY MANAGED PER EMAR. PT COOPERATIVE W/ ALL CARE AND DID NOT HAVE EPISODES OF AGITATION THIS SHIFT. NO OTHER ACUTE CHANGES. CALL LIGHT WITHIN REACH AND PT ABLE TO MAKE NEEDS KNOWN.
--- NOTE | 2025-02-07 04:50 | NUR ---
SHIFT SUMMARY PT SLEPT LONG INTERVALS DURING THE NIGHT. MEDICATED FOR PAIN AND ANXIETY PER EMAR. PT HAD A FORMED BM ON BSC. VOIDS PER PUREWICK. 3L NC MAINTAINED. COMFORT CARE CONTINUES. PT REFUSES TO TURN. FLOATED ON PILLOWS. BED IN LOWEST POSITION, CALL LIGHT WITHIN REACH, SIDERAILS UP X2.
--- NOTE | 2025-02-07 17:24 | NUR ---
SHIFT SUMMARY PT COOPERATIVE W/ CARE AND PAIN MEDICATED PER EMAR. NO ACUTE CHANGES. CALL LIGHT WITHIN REACH AND PT ABLE TO MAKE NEEDS KNOWN.
--- NOTE | 2025-02-08 04:03 | NUR ---
SHIFT SUMMARY: Pt is admitted for acute on chronic respiratory failure with hypoxia and is a DNR. is alert and able to make needs known. ADLs have been 1p. Pain has been managed with routine medication. On comfort care.
--- NOTE | 2025-02-08 17:47 | NUR ---
PT PLEASANT TODAY. PAIN MANAGED WITH AVAILABLE MEDS. DID SLEEP MUCH OF AFTERNOON AFTER LAST DOSE PAIN MEDS. STILL PENDING PLACEMENT. NO OTHER NEW CONCERNS NOTED. BED IN LOW POSITION, CALL LITE IN REACH, CALLS APPROP
--- NOTE | 2025-02-09 18:35 | NUR ---
SUMMARY- PT AAOX4. ON 3L. BEDREST. PT CAN TURN HERSELF AND HAS DONE SO T/O THE DAY. NO ACUTE EVENTS THIS SHIFT. PT'S PAIN WELL CONTROLLED W/ EMAR PAIN MEDS PER PT.
--- NOTE | 2025-02-10 17:12 | NUR ---
SHIFT SUMMARY: PT IS ALERT AND ORIENTED X4. USES OXYGEN 2LPM VIA NC. COMMUNICATES NEEDS APPROPRIATELY. PUREWICK IN PLACE TO MEDIUM SUCTION. READJUSTS SELF INDEPENDENTLY IN BED. PLEASANT AND COOPERATIVE WITH STAFF. REPORTS PAIN 8-9/10, DESCRIBES IT GENERALIZED CHRONIC PAIN.
--- NOTE | 2025-02-11 03:30 | NUR ---
SHIFT SUMMARY PATIENT HAS NOT HAD ANY COMPLAINTS DURING THE NIGHT AND HAS APPEARED TO SLEEP COOMFORTABLY. CALL LIGHT IS WITHIN REACH. SAFETY PRECAUTIONS ARE BEING MAINTAINED.
--- NOTE | 2025-02-11 11:26 | NUR ---
Spiritual Care Visit. Pt. is awake in bed and welcomes my visit. Pt. verbalizes with excitement that she has a room lined up at [facility], and that it her expectation that she would be transferred there today. Listen with excitement adn interest. ALso seek to normalize the Pt. experience. Pt. displayed evidence of being encouraged and verbalized gratitude for the care she had received. Prayed with the Pt. Pt. verbalized gratitude for the spiritual care visit.
[2025-02-11] MEDS ORDERED: ACET325 PO (11:46)
[2025-02-11] MEDS ORDERED: ALBU90OI INH (11:48)
[2025-02-11] MEDS ORDERED: DOC250 PO (11:48)
[2025-02-11] MEDS ORDERED: ELIQUIS5 M2 PO (11:48)
[2025-02-11] MEDS ORDERED: HYDHCL25 PO (11:49)
[2025-02-11] MEDS ORDERED: IPRAT-ALBUT 0.5-3 ML INH (11:50)
[2025-02-11] MEDS ORDERED: DULCOLAX400 MG/5 M PO (11:52)
[2025-02-11] MEDS ORDERED: [UNRECOGNIZED DRUG - OTHER] TOP (11:54)
[2025-02-11] MEDS ORDERED: DULERA 200 MCG-13 GM INH (11:55)
[2025-02-11] MEDS ORDERED: ONDA4ODT PO (11:57)
[2025-02-11] MEDS ORDERED: MIRALAX17 GM PO (11:57)
[2025-02-11] MEDS ORDERED: SENNA LAXATIVE8.6 MG PO (11:58)
[2025-02-11] MEDS ORDERED: SERT100 PO (11:58)
[2025-02-11] MEDS ORDERED: NASAL SPRAY88 ML INH (12:00)
[2025-02-11] MEDS ORDERED: SPIRIVA RESPIMAT4 G3 INH (12:01)
--- NOTE | 2025-02-11 17:35 | NUR ---
NO CHANGES. PT WILL D/C TOMORROW
--- NOTE | 2025-02-12 03:18 | NUR ---
SHIFT SUMMARY PATIENT HAS APPEARED TO SLEEP COMFORTABLY TONIGHT. SHE WAS MEDICATED WITH HER TYPICAL PRN MEDICATION AT BEDTIME. HER PAIN HAS BEEN WELL CONTROLLED. PATIENT IS ORIENTED X4. SHE HAS HER CALL LIGHT WITHIN REACH. SAFETY PRECAUTIONS ARE BEIING MAINTAINED.
[2025-02-12] MEDS ORDERED: Magnesium Hydroxide Conc 10 ML UDC PO PRN (10:35)
--- NOTE | 2025-02-12 16:45 | NUR ---
NO ACUTE CHANGES THIS SHIFT. PT D/C PENDING INSURANCE AUTH. TREATED PAIN PER EMAR
--- NOTE | 2025-02-13 04:57 | NUR ---
SHIFT SUMMARY: Pt is admitted for acute on chronic respiratory failure with hypoxia and is a DNR. is on comfort care. Is alert and able to make needs known. ADLs have been 1p. Pain has been managed with PRN and routine medications.
--- NOTE | 2025-02-13 12:54 | NUR ---
DISCHARGE NOTE: PATIENT GOT READY AND DRESSED FOR DISCHARGE, BELONGINGS WERE COLLECTED. PATIENT WAS TRANSPORTED BY [facility] WITH PERSONAL WHEELCHAIR; WAS DISCHARGED WITH HOSPITAL PROVIDED OXYGEN TANK. NO SIGNS OR SYMPTOMS OF DISTRESS WITH DISCHARGE; PAPERWORK PROVIDED TO MEDICAL TRANSPORTER.
--- NOTE | 2025-02-13 13:55 | NUR ---
HOME MEDS LEFT IN DRAWER; GABAPENTIN AND TORESMIDE; CALLED [facility] THEY STATED THAT THEY DO NOT NEED THE MEDS AND TO DISPOSE
== END 2025-02-13 12:03 | disposition hospice, inpatient (51) | DRG 189 ==
LOC: ER 11:17 → MEDS 11:18 → PCU 11:18 → MEDS 11:18 → PCU 16:57 → MEDS 12-08 14:07 → PCU 12-08 18:15 → MEDS 12-08 21:28 → PCU 12-08 21:28 → MEDS 02-13 12:03
PROVIDERS: Student in an Organized Health Care Education/Training Program; ADMIT Internal Medicine
DX: J96.21 Acute and chronic respiratory failure with hypoxia (principal); J18.9 Pneumonia, unspecified organism; J44.1 Chronic obstructive pulmonary disease with (acute) exacerbation; J44.0 Chronic obstructive pulmonary disease with (acute) lower respiratory infection; I82.431 Acute embolism and thrombosis of right popliteal vein; I82.411 Acute embolism and thrombosis of right femoral vein; E87.3 Alkalosis; Z51.5 Encounter for palliative care; Z66 Do not resuscitate; Z59.12 Inadequate housing utilities; I50.30 Unspecified diastolic (congestive) heart failure; F41.0 Panic disorder [episodic paroxysmal anxiety]; J96.22 Acute and chronic respiratory failure with hypercapnia; M79.7 Fibromyalgia; K21.9 Gastro-esophageal reflux disease without esophagitis; F51.04 Psychophysiologic insomnia; J43.9 Emphysema, unspecified; D64.9 Anemia, unspecified; E66.9 Obesity, unspecified; E88.09 Other disorders of plasma-protein metabolism, not elsewhere classified; E87.6 Hypokalemia; F32.9 Major depressive disorder, single episode, unspecified; K59.00 Constipation, unspecified; R09.82 Postnasal drip; R19.7 Diarrhea, unspecified; Z99.81 Dependence on supplemental oxygen; Z88.8 Allergy status to other drugs, medicaments and biological substances; Z88.1 Allergy status to other antibiotic agents; Z87.891 Personal history of nicotine dependence; Z79.899 Other long term (current) drug therapy; Z68.36 Body mass index [BMI] 36.0-36.9, adult; Z60.8 Other problems related to social environment
CPT/HCPCS: 0241U; 36415; 71045; 71260; 80048; 80053; 82803; 82947; 83880; 84484; 85025; 85027; 93005; 93010; 93971; 94640; 94664; 94760; 94762; 96374-59; 96376; 97129; 97165; 99285-25; A9270; G0009; G0378; J2919; J7512; J7614; Q9967